=== PATIENT | female | born 1985 | race Hispanic/Latino ===

== ENCOUNTER 2016-06-26 07:23 | Emergency (ER) | payer OTHER ==
[~2016-06-26] VITALS: Ht 157.5 cm; Wt 63.6 kg
[~2016-06-26 07:23] MED LIST: DOCU-41 PO; HYDR-4003 PO; SULF1TAB35 PO
[2016-06-26 07:26] VITALS: BP 117/77; PULSE 87; RESP 12; O2SAT 98
[2016-06-26] MEDS ORDERED: 0.9% Sodium Chloride 1,000 ML IV ONE (07:34)
--- NOTE | 2016-06-26 07:37 | ED.REPORT ---
HPI-Abd Pain F Under 40 Date of Service Jun 26, 2016 ED Provider: Nir Wakefield MD The patient is a 30 year old female who presents to the emergency department complaining of "sharp" RLQ abdominal pain that began suddenly prior to arrival while having intercourse. The pain has been constant since onset. Her pain is exacerbated with movement and walking. She is currently 16 weeks . She has not had similar symptoms in the past. She denies fever, chills , nausea, vomiting, diarrhea, vaginal bleeding, abnormal vaginal discharge, dysuria or hematuria. She has had a sore throat for the last week. Her LNMP was March 02. Nursing Notes Stated Complaint: ABDOMINAL PAIN/4MTHS Chief Complaint: Female Abdominal Pain Nursing Notes Reviewed: Yes Allergies: Coded Allergies: No Known Allergies (Unverified , 03/06/16) Scheduled Sulfamethoxazole/Trimeth 800-160 mg (Bactrim DS 800-160 mg) 1 Each Tablet 1 TABLET PO BID Scheduled PRN Docusate Sodium (Colace) 100 Mg Capsule 100 MG PO DAILY PRN PRN For Constipation Hydrocodone-Acetaminophen 5-325 mg (Hydrocodone-Acetaminophen 5-325 mg) 1 Each Tablet 1 TABLET PO Q4H PRN PRN For Pain General Time Seen by MD: 07:33 Chief Complaint Abdominal pain Hx Obtained From: Patient Arrived By: Walk-in Sudden in Onset?: Yes Onset Occurred: 1 - 4 hours ago Context of Onset: [place] Symptom Duration: Since onset Progression since Onset: Constant Location: : RLQ Quality: Painful Severity: Current: Moderate Severity: Maximum: Moderate Status: Last NL menst cycle (March 02) Sexual History / Control: Reports History of STD (Chlamydia), Reports Pt is sexually active : 1 Recent Healthcare: No recent doctor visit, No recent hospitalization Similar Sx Previous: No Past Medical History Past Medical History History of Chlamydia Family History Noncontributory Smoking History Unknown if Ever Smoker Social History Other Social History: Good social support, Local resident Ambulatory Status Independent Review of Systems Constitutional: Denies: Chills, Fever GI: Reports: Abdominal pain, Denies: Diarrhea, Nausea, Vomiting Female: Reports: , Denies: Dysuria, Hematuria, Vaginal bleeding - abnl, Vaginal discharge Complete sys rev & neg: except as marked. Ears / Nose / Throat: Reports: Sore throat Physical Exam Initial Vital Signs Vital Signs (First) Date Time Temp Pulse Resp B/P Pulse Ox O2 Delivery O2 Flow Rate FiO2 06/26/16 07:26 36.3 87 12 117/77 98 Room Air Initial VS: Reviewed Head / Eyes: Atraumatic, Normocephalic, PERRL ENT: Mucous membranes moist, Conjunctiva normal, No scleral icterus Neck: Supple, Non-tender, Full range of motion Lymphatic: No lymphadenopathy Extremities: Vascular intact, Neuro intact, No swelling, No tenderness Skin: Warm, Dry, No cyanosis Neurologic: Alert, Oriented, Nonfocal Psychiatric: Mood/affect normal, Behavior normal, Normal thought content General/Constitutional: Awake, Alert, No acute distress, Well appearing Respiratory / Chest: Atraumatic, Breath sounds NL, Breath sounds = bilat, No respiratory distress, No rales, No rhonchi, No wheezing Cardiovascular: Heart rate NL, Regular rhythm, Heart sounds NL, Peripheral circulation NL Abdomen: Soft, No guarding, No rebound, BS normoactive, No distention, No hernia, No palpable mass, No pulsatile mass Tenderness/Guarding/Rebound: Positive: Tender RLQ..., Tender suprapubic No rigidity. Gavid uterus c/w 4 month . Back: Inspection NL, Full range of motion, Painless range of motion, No midline vertebral tend Interpretation & Diagnostics Interpretation & Diagnostics: Urine dip negative Abdominal US negative Lab Results Interpretation Result Diagram: 06/26/16 0805 06/26/16 0805 Test 06/26/16 08:00 06/26/16 08:05 Hold Urine Received (Received) White Blood Count 6.2th/mm3 (3.8-10.1) Red Blood Count 3.51mil/mm3 (3.90-5.20) Hemoglobin 11.4g/dL (12.0-15.6) Hematocrit 32.1% (35.0-46.0) Mean Corpuscular Volume 91.5fL (81-100) Mean Corpuscular Hemoglobin 32.5pg (27.0-35.0) Mean Corpuscular Hemoglobin Concent 35.5% (32.0-37.0) Red Cell Distribution Width 12.0% (12.3-15.4) Platelet Count 211bil/L (150-400) Neutrophils (%) (Auto) 64.2% (40-74) Lymphocytes (%) (Auto) 24.5% (14-46) Monocytes (%) (Auto) 7.6% (4-12) Eosinophils (%) (Auto) 2.6% (0-5) Basophils (%) (Auto) 0.5% (0-3) Sodium Level 137mEq/L (134-144) Potassium Level 3.7mEq/L (3.5-5.2) Chloride Level 104mEq/L (97-108) Carbon Dioxide Level 20mmol/L (18-29) Blood Urea Nitrogen 10mg/dL (6-20) Creatinine 0.34mg/dL (0.57-1.00) Estimat Glomerular Filtration Rate 324mL/min (>59) Glucose Level 92mg/dL (60-99) Calcium Level 8.3mg/dL (8.5-10.1) Total Bilirubin 0.3mg/dL (0.0-1.2) Aspartate Amino Transf (AST/SGOT) 21U/L (0-50) Alanine Aminotransferase (ALT/SGPT) 23U/L (0-32) Alkaline Phosphatase 43U/L (25-150) Total Protein 6.6g/dL (6.4-8.4) Albumin 3.5g/dL (3.4-5.0) Lipase 26U/L (13-60) Re-Eval/Medical Decision Med Decision/Clinical Course In summary, the patient is a 30-year-old female currently approximately 4 months by LMP, 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 On examination the patient is afebrile with stable vital signs and in no apparent distress. She is having no vaginal bleeding. Laboratory studies including CBC and CMP are unremarkable. There is no evidence of placental abruption, ovarian torsion or distress. On transvaginal ultrasound appendix cannot be visualized however her overall presentation is unconvincing for appendicitis both in the nature of her pain, absence of fever, absence of leukocytosis and occurrence of pain in the setting of sexual intercourse. My suspicion for appendicitis based upon the overall presentation is very low. The nature of her symptoms are not urinary in nature and her urinalysis is normal without evidence of blood or infection. Her pain was treated with [place] and she reported symptomatic improvement. At this time, I feel that she is appropriate for discharge home. She will follow-up with OB/ RETORT LOADER in the coming week. She has been advised to return immediately for recurrent/worsening pain, vaginal bleeding or any other new/concerning symptoms. The patient verbalized understanding and agreement with the plan and she was discharged in good condition. Source of Hx: Old records Re-Evaluation/Progress : Time of Eval: 08:59 Re-Evaluation/Progress Note: Rechecked the patient. Discussed results, diagnosis, and plan for discharge. All questions were addressed. Counseled Regarding: Diagnosis, Lab results, Need for follow-up, When/why to return to ED Discharge & Departure Primary Impression: Weeks of gestation: 16 weeks Qualified Code: Z3A.16 - 16 weeks gestation of Additional Impressions: Abdominal pain Abdominal location: lower abdomen Qualified Code: R10.30 - Lower abdominal pain, unspecified Painful sexual intercourse Disposition: Home Discharge Condition All VS Reviewed: Yes Condition: Stable Patient Instructions: Acute Abdominal Pain (ED) Additional Instructions: Thank you for seeking care at the emergency room. Our primary goal today in the ED was to evaluate you for any life-threatening conditions. Your evaluation was reassuring. You should follow-up with your OBGYN in the next week for re-evaluation. You should return to the ED immediately if you develop increased pain, fevers, vomiting, vaginal bleeding, abnormal vaginal discharge, lightheadedness, weakness or any other concerning signs or symptoms. Thank you for letting us partake in your care today. Referrals: Ana Luisa Andino MD (PCP) Wilianibalma Attestation Portions of this note were transcribed by Aria Gómez. I, Dr. Wakefield personally performed the history, physical exam and medical decision-making; I reviewed and confirmed the accuracy of the information in the transcribed note. Signed by: Huong Sheth, 06/26/2016 and 0915. copies to: Ana Luisa Andnio MD,Nir Finch MD Jun 26, 2016 07:37 Aria Gómez Jun 26, 2016 07:40
[2016-06-26] MEDS ORDERED: HYDROcodone-APAP 5-325 mg Tablet PO ONE (07:50)
[2016-06-26 08:21] LABS: BASOPHILS % (AUTO) 0.5 % (0-3); EOSINOPHILS % (AUTO) 2.6 % (0-5); MONOCYTES % (AUTO) 7.6 % (4-12); Mean Corpuscular Hemoglobin 32.5 pg (27.0-35.0); Mean Corpuscular Volume 91.5 fL (81-100); NEUTROPHILS % (AUTO) 64.2 % (40-74); Platelet Count 211 bil/L (150-400)
--- NOTE | 2016-06-26 08:48 | DRSVH ---
PROCEDURE: US APPENDIX INDICATIONS: rlq pain, TECHNIQUE: Real-time focused scanning was performed of the abdomen with attention to the appendix, with image do cumentation. COMPARISON: None. FINDINGS: The appendix is not seen. A single living intrauterine gestation is present, with a heart rate of 149 beats per minute. Placenta is within normal limits. Right ovary is within normal limits. IMPRESSION: 1. Single living intrauterine gestation. 2. Normal right ovary. 3. Appendix not seen. Dictated by: Noemy Farias M.D. on 06/26/2016 at 8:46 Approved by: Noemy Farias M.D. on 06/26/2016 at 8:46
[2016-06-26 08:58] VITALS: BP 111/77; PULSE 76; RESP 14; O2SAT 96
[2016-06-26 09:09] VITALS: BP 111/77; PULSE 76; RESP 14; O2SAT 96
== END 2016-06-26 09:10 | disposition home or self-care (01) ==
LOC: SED 07:23
DX: O26.892 Other specified pregnancy related conditions, second trimester (principal); R10.31 Right lower quadrant pain; N94.10 Unspecified dyspareunia; Z3A.16 16 weeks gestation of pregnancy

== ENCOUNTER 2016-06-28 00:42 | Emergency (ER) | payer OTHER ==
[~2016-06-28] VITALS: Ht 157.5 cm; Wt 65.9 kg
[2016-06-28 01:06] VITALS: BP 127/77; RESP 18; O2SAT 99
--- NOTE | 2016-06-28 02:05 | ED.REPORT ---
HPI-General Illness Date of Service Jun 28, 2016 ED Provider: Edward Finn MD Patient is a 30 year old female who is currently 16 weeks presents to the ED complaining of a sore throat for the past week. The patient states that she is unable to eat or drink due to the pain of swallowing. She reports pain even when swallowing her own saliva, with radiation of her pain up to her ears. Patient reports associated productive cough, sometimes blood streaked. She denies a fever or chills. The patient's significant other is also currently ill with the same symptoms. Nursing Notes Stated Complaint: SORE THROAT/POSSIBLE INFECTION/ PT IS 16 WKS PREG Chief Complaint: ENT & Mouth Nursing Notes Reviewed: Yes Allergies: Coded Allergies: No Known Allergies (Unverified , 06/28/16) Scheduled Amoxicillin (Amoxicillin) 500 Mg Tablet 500 MG PO TID Sulfamethoxazole/Trimeth 800-160 mg (Bactrim DS 800-160 mg) 1 Each Tablet 1 TABLET PO BID Scheduled PRN Docusate Sodium (Colace) 100 Mg Capsule 100 MG PO DAILY PRN PRN For Constipation Hydrocodone-Acetaminophen 5-325 mg (Hydrocodone-Acetaminophen 5-325 mg) 1 Each Tablet 1 TABLET PO Q4H PRN PRN For Pain General Time Seen by MD: 02:03 Chief Complaint Sore throat Hx Obtained From: Patient Arrived By: Walk-in Sudden in Onset?: No Onset Occurred: 1 week ago Symptom Duration: Since onset Quality: Painful Severity: Current: Moderate Severity: Maximum: Moderate Recent Healthcare: No recent hospitalization, Recent doctor visit Past Medical History Past Medical History History of Chlamydia Past Surgical History none reported Family History Noncontributory Smoking History Unknown if Ever Smoker Social History Other Social History: Good social support, Local resident Ambulatory Status Independent Review of Systems + decreased PO intake Full Review of Systems Constitutional: Denies: Chills, Fever Ears / Nose / Throat: Reports: Earache bilateral, Sore throat, Throat pain Respiratory: Reports: Non-productive cough, Prod cough, bloody Complete sys rev & neg: except as marked. Physical Exam Vital Signs Vital Signs Date Time Temp Pulse Resp B/P Pulse Ox O2 Delivery O2 Flow Rate FiO2 06/28/16 03:20 36.7 94 18 127/77 99 Room Air 06/28/16 01:06 36.7 94 18 127/77 99 Room Air Initial VS: Reviewed Extremities: Vascular intact, Neuro intact Skin: Warm, Dry, No cyanosis Neurologic: Alert, Oriented, Nonfocal Psychiatric: Mood/affect normal, Behavior normal, Normal thought content General/Constitutional: Awake, Alert, No acute distress Head / Eyes: Normocephalic, PERRL ENT: Airway patent, Pharynx NL (throat is mobile, no edema), No facial swelling Pharynx / Tonsils / Uvula: Negative: Pharyngeal erythema, Tonsillar exudate L, Tonsillar exudate R, Tonsillar swelling L, Tonsillar swelling R significant other has purulent white patches on throat Neck: Supple, No adenopathy Respiratory / Chest: Breath sounds NL, No respiratory distress, No stridor Cardiovascular: Heart rate NL, Regular rhythm Interpretation & Diagnostics Interpretation & Diagnostics: NEGATIVE FOR INFLUENZA TYPE A AND B Lab Results Interpretation Test 06/28/16 02:07 Hold Urine Received (Received) Re-Eval/Medical Decision Med Decision/Clinical Course 30-year-old is currently sixteen weeks , presents with several days of sore throat and ear congestion cough, and a significant other with a patchy red throat presumably strep. She is begun with amoxicillin, see list Decadron, as she is having difficulty swallowing at all. Discharged now in stable condition. No evidence of pharyngeal immobility or abscess. No asymmetry. Swallowing her own secretions while here. Advised to return for any worsening symptoms despite treatment. Source of Hx: Old records Time of Eval: 02:21 Patient Status: Condition improved Re-Evaluation/Progress Note: Patient will be treated for pharyngitis. Patient understands and agrees with the plan to be discharged home. Discharge instructions and follow-up discussed. All questions were addressed. Return to the ED warnings given. Counseled Regarding: Diagnosis, Need for follow-up, When/why to return to ED Discharge & Departure Primary Impression: Pharyngitis Pharyngitis/tonsillitis etiology: unspecified etiology Qualified Code: J02.9 - Acute pharyngitis, unspecified Additional Impression: Weeks of gestation: 16 weeks Qualified Code: Z3A.16 - 16 weeks gestation of Disposition: Home Discharge Condition All VS Reviewed: Yes Condition: Stable Patient Instructions: Pharyngitis (ED) Additional Instructions: Amoxicillin three times daily for ten days. Follow-up with your doctor in the office. Return if you have worsening difficulty with swallowing, any difficulty with speaking or breathing, or any new symptoms of concern. Referrals: Ana Luisa Andino MD (PCP) Wilianibe Attestation Portions of this note were transcribed by Rosi Vallejo. I, Dr. Finn personally performed the history, physical exam and medical decision-making; I reviewed and confirmed the accuracy of the information in the transcribed note. Signed by: Huong Ervin, 06/28/2016 0221 copies to: Ana Luisa Andino MD, Christopher W MD Jun 28, 2016 02:05 Rosi Vallejo Jun 28, 2016 02:12
[2016-06-28] MEDS ORDERED: Dexamethasone 20 mg/2 mL Oral Solution PO ONE (02:15)
[2016-06-28] MEDS ORDERED: AMOX500T2 PO (02:17)
[2016-06-28 03:20] VITALS: BP 127/77; PULSE 94; RESP 18; O2SAT 99
== END 2016-06-28 03:20 | disposition home or self-care (01) ==
LOC: SED 00:42
DX: O99.89 Other specified diseases and conditions complicating pregnancy, childbirth and the puerperium (principal); J02.9 Acute pharyngitis, unspecified; Z3A.16 16 weeks gestation of pregnancy

== ENCOUNTER 2016-10-21 21:13 | Emergency (ER) | payer OTHER ==
[~2016-10-21] VITALS: Ht 157.5 cm; Wt 57.0 kg
[~2016-10-21 21:13] MED LIST changes: +AMOX500T2 PO
[2016-10-21 21:33] VITALS: BP 141/91; PULSE 121; RESP 18; O2SAT 97
[2016-10-21 22:31] LABS: BASOPHILS % (AUTO) 0.1 % (0-3); EOSINOPHILS % (AUTO) 0.4 % (0-5); MONOCYTES % (AUTO) 6.1 % (4-12); Mean Corpuscular Hemoglobin 32.1 pg (27.0-35.0); NEUTROPHILS % (AUTO) 82.6 % (40-74); Platelet Count 239 bil/L (150-400)
[2016-10-21 23:17] VITALS: BP 131/67; PULSE 116; RESP 20; O2SAT 95
--- NOTE | 2016-10-21 23:18 | ED.REPORT ---
HPI-Fever Date of Service October 21, 2016 ED Provider: Romeo Holliday MD 31 y/o 8 months female with a hx of anemia presents to the ED complaining of cough with white sputum, onset 2 weeks ago. Associated sx include chills, myalgia, back pain (worse on the right) and some brown vaginal discharge. The pt states cough syrup improved her cough but did not resolve it completely. She denies nausea, vomiting and being in contact with someone who has been sick. The pt also denies fever but was noted to have low grade fever in the ED. The pt had a UTI approximately 4 months ago. The pt continues to take the cough syrup and has also been taking her anemia medication. An beating machine operator was used. Nursing Notes Stated Complaint: BODY PAIN,SHAKING,CHILLS Chief Complaint: General Complaint Nursing Notes Reviewed: Yes ([facility], [employer] not reconciled) Allergies: Coded Allergies: No Known Allergies (Unverified , 06/28/16) Scheduled Amoxicillin (Amoxicillin) 500 Mg Tablet 500 MG PO TID Sulfamethoxazole/Trimeth 800-160 mg (Bactrim DS 800-160 mg) 1 Each Tablet 1 TABLET PO BID Scheduled PRN Docusate Sodium (Colace) 100 Mg Capsule 100 MG PO DAILY PRN PRN For Constipation Hydrocodone-Acetaminophen 5-325 mg (Hydrocodone-Acetaminophen 5-325 mg) 1 Each Tablet 1 TABLET PO Q4H PRN PRN For Pain General Time Seen by MD: 22:55 Chief Complaint Cough, productive (White sputum) Hx Obtained From: Patient, Training Professional Arrived By: Walk-in Onset Occurred: More than a week ago... (2 weeks) Symptom Duration: Since onset Location: : Back lower (right side) Quality: Painful Radiation: Does not radiate Severity: Current: Mild Severity: Maximum: Mild Context: Immunization Status General: All up to date Recent Healthcare: Recent doctor visit Similar Sx Previous: No Past Medical History Past Medical History History of Chlamydia - Currently (as of 09/2016) Past Surgical History Reports: Cholecystectomy Family History Noncontributory Smoking History Unknown if Ever Smoker Social History Other Social History: Good social support, Local resident Ambulatory Status Independent Review of Systems Constitutional: Reports: Chills, Fever (recorded in the ED) Respiratory: Reports: Prod cough, white GI: Denies: Nausea, Vomiting Female: Reports: Vaginal discharge (Brown color) Complete sys rev & neg: except as marked. Musculoskeletal: Reports: Back pain (worse on right), Myalgia Physical Exam Initial Vital Signs Vital Signs (First) Date Time Temp Pulse Resp B/P Pulse Ox O2 Delivery O2 Flow Rate FiO2 10/21/16 21:33 37.8 121 18 141/91 97 Room Air Initial VS: Reviewed, Vital signs abnormal (fever, tachycardia (appropriate) ) Head / Eyes: Atraumatic, Normocephalic Abdomen / GI: Soft, Non-tender Extremities: Vascular intact, Neuro intact, No swelling, No tenderness General/Constitutional: Awake, Alert, Cooperative Fatigued Neck: Atraumatic, Supple, Full range of motion Respiratory / Chest: Atraumatic, Breath sounds = bilat, No rales, No wheezing Scattered rhonchi. Coughing Cardiovascular: Heart rate NL, Regular rhythm, Heart sounds NL, No gallop, No murmurs, No rubs Skin: Atraumatic, Color NL, No rash, Warm, Dry, Intact Neurologic: Oriented X3, Speech NL, No motor deficits, No sensory deficits Back: Atraumatic, Full range of motion Trace left CVA tenderness. Interpretation & Diagnostics Lab Results Interpretation Result Diagram: 10/21/16222410/21/16 222 Test 10/21/16 22:25 10/21/16 23:50 White Blood Count 8.2th/mm3 (3.8-10.1) Red Blood Count 3.40mil/mm3 (3.90-5.20) Hemoglobin 10.9g/dL (12.0-15.6) Hematocrit 30.6% (35.0-46.0) Mean Corpuscular Volume 90.0fL (81-100) Mean Corpuscular Hemoglobin 32.1pg (27.0-35.0) Mean Corpuscular Hemoglobin Concent 35.6% (32.0-37.0) Red Cell Distribution Width 12.3% (12.3-15.4) Platelet Count 239bil/L (150-400) Neutrophils (%) (Auto) 82.6% (40-74) Lymphocytes (%) (Auto) 10.1% (14-46) Monocytes (%) (Auto) 6.1% (4-12) Eosinophils (%) (Auto) 0.4% (0-5) Basophils (%) (Auto) 0.1% (0-3) Sodium Level 136mEq/L (134-144) Potassium Level 3.9mEq/L (3.5-5.2) Chloride Level 101mEq/L (97-108) Carbon Dioxide Level 19mmol/L (18-29) Blood Urea Nitrogen 13mg/dL (6-20) Creatinine 0.45mg/dL (0.57-1.00) Estimat Glomerular Filtration Rate 233mL/min (>59) Glucose Level 94mg/dL (60-99) Calcium Level 8.6mg/dL (8.5-10.1) Total Bilirubin 0.4mg/dL (0.0-1.2) Aspartate Amino Transf (AST/SGOT) 16U/L (0-50) Alanine Aminotransferase (ALT/SGPT) 14U/L (0-32) Alkaline Phosphatase 91U/L (25-150) Total Protein 7.0g/dL (6.4-8.4) Albumin 3.4g/dL (3.4-5.0) Hold Patel Top Tube Received (Received) Urine Color Yellow (YELLOW) Urine Appearance Slightly cloudy Urine pH 7.5 (5.0-8.0) Urine Specific [place] 1.015 (1.003-1.035) Urine Protein Tracemg/dL (NEG,TRACE) Urine Glucose (UA) Negativemg/dL (NEGATIVE) Urine Ketones Negativemg/dL (NEGATIVE) Urine Occult Blood Negative (NEGATIVE) Urine Nitrite Negative (NEGATIVE) Urine Bilirubin Negative (NEGATIVE) Urine Urobilinogen 1.0mg/dL (NORMAL) Urine Leukocyte Esterase Trace (NEGATIVE) Urine RBC 0-2/hpf (0-2) Urine WBC 11-50/hpf (0-5) Urine Epithelial Cells Many/hpf (NONE-MOD) Urine Crystals None seen (NONE SEEN) Urine Bacteria Moderate/hpf (NONE-FEW) Urine Hyaline Casts None/lpf (NONE) Urine Granular Casts None seen (NONE SEEN) Urine Waxy Casts None seen (NONE SEEN) Urine Red Blood Cell Casts None seen (NONE SEEN) Urine White Blood Cell Casts None seen (NONE SEEN) Urine Mucus Present (None Seen) Urine Trichomonas None seen (NONE SEEN) Urine Yeast None (NONE SEEN) Urinalysis Comment None Urine Culture Reflexed Indicated Lab Results Interpretation: CBC normal CMP normal UA positive Re-Eval/Medical Decision Med Decision/Clinical Course This is a 31-year-old female with third trimester whose had a cough for a couple weeks, and urinalysis develop fever, maybe some trace flank pain, possibly even a little bit of dysuria. She has had no nausea or vomiting. She has diffuse body aches. She denies a sense of shortness of breath, thinks her cough is actually improving. On exam she does have a fever, she is not hypoxic. She is fatigued, but nontoxic. Her abdomen is gravid, but soft nontender. heart tones were normal. Blood work was normal. UA is positive for markers of infection. She does have a cough, but is not hypoxic, does not have overt rhonchi. At this point suspect UTI/early pyelonephritis. The patient is not having any nausea or vomiting to require hospitalization. She does not appear toxic. She received an IM dose of Unasyn, is being discharged from a course of Augmentin. Advised continue Tylenol. Careful routine precautions and return precautions were reviewed. Patient is discharged in improved condition. Source of Hx: Old records Re-Evaluation/Progress #1: Time of Eval: 11:15 Re-Evaluation/Progress Note: Discussed lab results, diagnosis and plan to administer antibiotics. Pt understands and agrees with the plan. All questions addressed. Re-Evaluation/Progress #2: Time of Eval: 00:10 Patient Status: Condition improved Re-Evaluation/Progress Note: Rechecked pt. Discussed lab results and diagnosis. Informed the pt of the plan to discharge. Pt understands and agrees with plan. F/U instructions and RTER warning given. All questions addressed. Counseled Regarding: Diagnosis, Lab results, Need for follow-up, When/why to return to ED Discharge & Departure Impression: Primary Impression: Urinary tract infection Urinary tract infection type: acute pyelonephritis Qualified Code: N10 - Acute pyelonephritis Additional Impressions: Cough Weeks of gestation: unspecified Qualified Code: Z33.1 - state, incidental Disposition: Home Discharge Condition All VS Reviewed: Yes Condition: Stable Additional Instructions: 1. Viviane anlisis de nessa fueron normales. 2. Viviane pruebas de orina revelan marcadores de infeccin, que pueden estar causando viviane sntomas. 3. Recibi melida inyeccin del antibitico Unasyn dallasy. ([place] es seguro en el embarazo). 4. [place] el antibitico Augmentin (amoxicilina / cido clavulnico) 875 mg dos veces al da shai 10 kline. ([place] antibitico en particular cubre los pat genos urinarios y respiratorios comunes) 5. [place] lquidos adicionales. 6. Margret Tylenol 1000 mg 3 veces al da segn sea necesario para la fiebre o yelitza. 7. Todava probablemente se sentir mal por las prximas 24 horas para que los antibiticos realmente tomen efecto. Dion debe mejorar claramente despus de 24- 36 horas con la resolucin de la fiebre y la mejora de los sntomas. Si usted est empeorando, si no mejora despus de 24-36 horas, necesita ser visto y revisado nuevamente. Vuelva al departamento de emergencia shai el fin de semana del da de fiesta si usted est teniendo cualesquiera dificultades. 8. Shelbie un seguimiento con laboy proveedor de servicios obsttricos la prxima semana 1. Your blood tests were normal. 2. Your urine tests do reveal markers of infection, which may be causing her symptoms. 3. You received an injection of the antibiotic Unasyn today. (This is safe in ). 4. Take the antibiotic Augmentin (amoxicillin/clavulanic acid) 875mg twice a day for 10 days. (This particular antibiotics covers both common urinary and respiratory pathogens) 5. Drink extra fluids. 6. Take Tylenol 1000 mg 3 times a day as needed for fever or aches. 7. You will still likely feel lousy for the next 24 hours for the antibiotics really did take effect. But she should be clearly improving after 24-36 hours with resolution of fever and improvement of symptoms. If you are getting worse , if you are not improving after 24-36 hours, you need to be seen and rechecked. Return to the emergency department over the holiday weekend if you are having any difficulties. 8. Follow up with your OB provider next week Referrals: Ana Luisa Andino MD (PCP) Scribe Attestation Portions of this note were transcribed by Jane Mcgovern. I, , personally performed the history, physical exam and medical decision-making;I reviewed and confirmed the accuracy of the information in the transcribed note. Signed by Huong Jj. 10/21/16 00:15 copies to: Ana Luisa Andino MD, Matthew F MD October 21, 2016 23:18 Jane Mcgovern October 21, 2016 23:30
[2016-10-21] MEDS ORDERED: AMPICILLIN SULBACTAM IM ONE (23:20)
[2016-10-22 00:01] LABS: APPEARANCE,URINE SLIGHTLY CLOUDY (CLEAR,HAZY); COLOR,URINE YELLOW (YELLOW); OCCULT BLOOD,URINE NEGATIVE (NEGATIVE); PH,URINE 7.5 (5.0-8.0)
[2016-10-22 00:32] VITALS: BP 122/55; PULSE 108; RESP 18; O2SAT 95
[2016-10-22] MEDS ORDERED: _Amoxicillin-Clavulanate 875-125 mg Tablet PO SCH (08:30)
== END 2016-10-22 00:34 | disposition home or self-care (01) ==
LOC: SED 21:37
DX: O26.893 Other specified pregnancy related conditions, third trimester (principal); R05 Cough; O23.03 Infections of kidney in pregnancy, third trimester; B96.4 Proteus (mirabilis) (morganii) as the cause of diseases classified elsewhere; M79.1 Myalgia; M54.5 Low back pain; Z3A.35 35 weeks gestation of pregnancy
CPT/HCPCS: 36415; 80053; 81000; 85025; 87086; 87088; 87186; 96372; 99285; J0295

== ENCOUNTER 2016-11-23 13:25 | Inpatient (IN) | payer OTHER ==
[~2016-11-23] VITALS: Ht 157.5 cm; Wt 77.1 kg
[2016-11-23] MEDS ORDERED: Lactated Ringer's 1,000 ML IV PRN (16:03)
[2016-11-23] MEDS ORDERED: Oxytocin 10 Unit/mL Inj IM PRN (16:05)
[2016-11-23] MEDS ORDERED: Carboprost 250 mCg/mL Inj IM PRN (16:05)
[2016-11-23] MEDS ORDERED: fentaNYL-PF 50 mCg/mL 2 mL Inj IVPUSH PRN (16:05)
[2016-11-23] MEDS ORDERED: Sodium Chloride LOK Flush 10 mL Syringe IVFLUSH PRN (16:05)
[2016-11-23] MEDS ORDERED: Methylergonovine 0.2 mg/mL Inj IM PRN (16:05)
[2016-11-23] MEDS ORDERED: Oxytocin 30 Units/500 mL LR 30 UNITS in IV Premix 1 EACH IV PRN ×2 (16:05→16:15)
[2016-11-23] MEDS ORDERED: Hemorrhage Kit, Post Partum XX ONE (16:05)
[2016-11-23] MEDS: Lactated Ringer's 1,000 ML IV SCH (16:11)
[2016-11-23 16:14] LABS: Mean Corpuscular Hemoglobin 32.2 pg (27.0-35.0); Mean Corpuscular Volume 93.3 fL (81-100)
[2016-11-23] MEDS: Misoprostol 25 mCg/0.25 Tablet VAGINAL SCH ×2 (16:47→20:53)
[2016-11-23] MEDS ORDERED: PREN-12 PO (17:59)
[2016-11-23] MEDS ORDERED: CHOL200025 PO (17:59)
[2016-11-23] MEDS ORDERED: LORA5SOL82 PO (17:59)
[2016-11-23] MEDS ORDERED: FERR324T2 PO (18:00)
[2016-11-23] MEDS ORDERED: HYDR28.484 RC (19:02)
--- NOTE | 2016-11-23 21:42 | HP ---
[address] [address] HISTORY AND PHYSICAL PATIENT: CARLEY FOSTER : 1985 MR#: [id number] ADMIT: 11/23/2016 JOB ID: [id number] CHIEF COMPLAINT: A 31-year-old G1, P0, at 37+ weeks with hypertension, proteinuria. HISTORY OF PRESENT ILLNESS: The patient is at 37-6/7 weeks based on LMP, consistent with 13 week ultrasound. She is noted to have elevated blood pressures during NST being done at the [facility]. Several blood pressures over 4 hours with diastolic greater than 90. She had been being monitored for development of preeclampsia due to lower extremity edema, onset about two weeks ago. Otherwise has been feeling well, without headache, visual changes, abdominal pain, or difficulty breathing. She has not had any vaginal bleeding. The movements have been normal. No rupture of membranes. No contractions. ALLERGIES: No known drug allergies. MEDICATIONS: 1. Ferrous gluconate one tablet daily. 2. vitamin 1 daily. 3. Loratadine 10 mg daily. 4. Hydrocortisone cream b.i.d. for itching. 5. Vitamin D3 2000 international units daily. CURRENT MEDICAL HISTORY: Dates as noted above. complicated by Rh negative status. She received RhoGAM at 31 weeks after a negative antibody screen. Chlamydia in the 1st trimester, treated with a negative test of cure and also a recheck negative at 36 weeks. E. coli UTI at 17 weeks with negative test of cure. Additionally labs significant for A negative blood type. RPR nonreactive. Rubella not immune. Hepatitis B surface antigen negative, HIV negative, gonorrhea negative. Quad screen normal. A 1-hour Glucola normal. GBS was negative. Pap smear within normal limits. PAST MEDICAL AND SURGICAL HISTORY: Significant for atopic dermatitis and gallbladder surgery in approximately 2007. 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 Supportive partner. No alcohol or drug use or tobacco use. No intimate partner violence noted in chart. PHYSICAL EXAMINATION: Blood pressures in the 140s over 90s and 130s over 90s repeatedly during evaluation at the [facility], including an initial blood pressure of 130/92. These are a significant change from evaluation just few days previously when she was in the 120s over 70s at the [facility]. O2 sats normal. She is afebrile. Pulse is normal. She is in no acute distress. Pleasant, cooperative. Cardiovascular: Regular rate and rhythm. S1, S2. No murmurs, gallops, or rubs. Lungs: Clear to auscultation bilaterally. No crackles, rhonchi, or wheezes. Abdomen is soft, nontender, gravid. Estimated weight 7 pounds. Lower extremities show 2+ edema on the feet, 1+ edema above the ankles. NST is reactive, with heart rate in the 120s to 130s. Good reactivity. The cervix is long, thick, and closed. It is firm, mid position. Ferreira score of approximately 1. LABORATORY: Labs done during triage evaluation showed her CBC to be within normal limits except for hematocrit 30.2. Urine protein/creatinine ratio 0.16. BUN 11, creatinine 0.51. Uric acid 4.1. AST 18 and ALT 13. However, the patient already had an elevated total 24 hour urine protein from November 19, 2016 as an outpatient, with a total 24 hour urine protein of 306 mg. Vertex confirmed today on bedside ultrasound. ASSESSMENT AND PLAN: 1. A 31-year-old G1, P0 at 37-6/7 weeks by susan morataya. Presents with elevated blood pressures in the context of edema and mild proteinuria. Case discussed with OB, who recommends induction, which will be done, starting with cervical ripening. It is possible, though not llikely, that if the patient does not make progress and blood pressures normalize, we may reconsider plan in 24-36 hours, but the patient needs to be hospitalized at this time and we expect to move toward delivery. 2. Rh-negative status. Check cord blood after delivery. Will need RhoGAM if Rh positive infant. 3. Rubella nonimmune. Will need vaccine after delivery. OB consultation on this patient is greatly appreciated. DAVID
[2016-11-24] MEDS ORDERED: hydrOXYzine Pamoate 25 mg Capsule PO PRN (00:05)
[2016-11-24] MEDS: Lactated Ringer's 1,000 ML IV SCH ×4 (00:11→19:32)
[2016-11-24] MEDS: Misoprostol 25 mCg/0.25 Tablet VAGINAL SCH ×2 (01:02→05:29)
[2016-11-24 16:09] LABS: Mean Corpuscular Hemoglobin 32.8 pg (27.0-35.0); Mean Corpuscular Volume 94.8 fL (81-100)
[2016-11-24] MEDS ORDERED: Promethazine 25 mg/mL Inj IM PRN (18:40)
--- NOTE | 2016-11-24 22:03 | CONS ---
[address] [address] PROGRESS NOTE PATIENT: CARLEY FOSTER : 1985 MR#: [id number] ADMIT: 11/23/2016 JOB ID: [id number] DATE OF SERVICE: 11/24/2016 SUBJECTIVE: She had received Cytotec overnight, though began having enough contractions that Cytotec was held during much of the day today. The contractions are mild, she has been able to walk and ambulate during them.. She has otherwise been feeling well, no headaches, no visual disturbances, no abdominal pain (other than contraction), and no difficulty breathing. She did have a small episode of anxiety last night which resolved within about 10-15 minutes, not associated with any vital sign changes. OBJECTIVE: During the day today, she has had stable vital signs, has been afebrile. She has had a couple of blood pressures diastolically just over 90 and a single systolic over 140. One of those was associated with a blood draw, the other ones were not. Other blood pressures all normal. She is in no acute distress. Pleasant, cooperative, appeared resting comfortably and speaking through her contractions. Her lower extremities continued to have 2+ edema on the feet of 1+ on the legs. Noted no edema elsewhere. Her abdomen is nontender. Cervical exam done at approximate 6 p.m. shows her cervix to still be closed with fingertip only at the external os, and cervical length approximately 2-1/2 cm, minimal effacement. -3 station. Medium consistency, which has improved from previous mid to medium position. strip has been good, category one throughout the day. LABS: Afternoon labs show normal white count, normal platelets, hematocrit stable at 32.7. BUN 11, creatinine 0.53, uric acid 3.5, AST 19, ALT 13. Urine protein to creatinine ratio was ordered, though appears to have been canceled by the lab. ASSESSMENT AND PLAN: A 31-year-old, 1, para 0, now at 38 weeks, with hypertension and proteinuria measured on one check approximately five days ago, meeting criteria for preeclampsia, undergoing cervical ripening in preparation for induction. She has been tolerating this well, though with very minimal cervical change. We will see if contractions are spaced out enough to allow us to use Cervidil overnight, to try to help the patient's cervix ripen further. If the patient does not go into more active labor, we will try to rest her overnight and then re-evaluate in the morning. Dr. Corona will be covering overnight. Dr. Marinelli in the morning. DAVID
[2016-11-25] MEDS: Lactated Ringer's 1,000 ML IV SCH ×3 (06:26→20:47)
[2016-11-25] MEDS ORDERED: Oxytocin 30 Units/500 mL LR 30 UNITS in IV Premix 1 EACH IV PRN (12:50)
--- NOTE | 2016-11-25 14:14 | CONS ---
[address] [address] CONSULTATION REPORT PATIENT: CARLEY FOSTER : 1985 MR#: [id number] ADMIT: 11/23/2016 JOB ID: [id number] DATE OF SERVICE: 11/25/2016 OBSTETRICAL CONSULTATION: CHIEF COMPLAINT: Induction of labor for preeclampsia. HISTORY OF PRESENTING ILLNESS: This is a 31-year-old 1, para 0, at 38 weeks and two days with expected date of delivery of December 07, 2016 dated by last menstrual period and consistent with 13 week ultrasound. She was admitted on November 23, 2016, two days ago, for induction for preeclampsia. She was noted to have elevated blood pressures. Maximum systolic blood pressure is 150 and maximal for diastolic blood pressure is 99. Blood pressure mostly running at 135/85. Denies headache, change in vision, abdominal pain or nausea and vomiting. Proteinuria as per 24 hour urine protein of 306 and a protein creatinine ratio of 0.32. Otherwise normal preeclampsia labs with platelets 221. AST 19, ALT 13, creatinine 0.53. Hematocrit 32.7. Induction started with misoprostol for the first 24 hours and then 12 hours of Cervidil. Cervix on admission was closed, 50%. On reassessment after the Cervidil, cervix is fingertip, 60%, and -2. complicated with preeclampsia, rubella non immune, Rh negative. GYNECOLOGIC HISTORY: History of Chlamydia April 2016. Test for cure negative March 2016. Anemia in . PAST OBSTETRIC HISTORY: Negative. This is her first . PAST GYNECOLOGIC HISTORY: Chlamydia positive during this . Menarche at age 12. Menses is every 28 days. No history of abnormal Pap smear. PAST MEDICAL HISTORY: Dermatitis atopic. PAST SURGICAL HISTORY: Gallbladder removal nine years ago. SOCIAL HISTORY: Denies alcohol, smoking or illicit drug abuse. FAMILY HISTORY: Diabetes father. Twins: Maternal side has twins and also on the paternal side. PHYSICAL EXAMINATION: Blood pressure as per history of presenting illness. Current vitals: Blood pressure 115/76, heart rate 71, respiratory rate 18, temperature 36.5. heart tones baseline 150, moderate variability, positive accelerations. No decelerations. Contractions irregular. General: Alert, oriented to time, place and person. Neck: Supple. Chest: Equal air entry bilaterally. No added sounds. Cardiovascular: Regular rate and rhythm. Abdomen: Gravid. Estimated weight 7 pounds. Cervical examination: Cervix is finger tip, 60%, 02, soft and posterior. After discussion with the patient regarding plan of care, the patient desired to proceed with Mcgowan balloon insertion that was inserted without difficulty. Internal and external balloon both filled with a total of 80 mL of fluid. LABORATORIES: As per history of presenting illness. LABS: Blood type A negative. Antibody screening positive, possibly from RhoGAM dose received in September 2016. HIV nonreactive. Rubella nonimmune. Rest of laboratory work obtained from the admission H and P note. Office results are not available in hard copy at this time. Will obtain a copy from the office. ASSESSMENT: This is 31-year-old 1, para 0, at 38 weeks and two days with preeclampsia without severe feature based on elevated blood pressures in the 140s/90s with maximum blood pressure of 150/98, asymptomatic here for induction of labor. Prostaglandin used for the last two days with minimal change. We were consulted by [facility]. The patient's induction was started by Dr. Guevara. was covering overnight and Dr. Marinelli is taking over this morning. Plan of care was discussed with Dr. Marinelli and with the patient. The patient was offered Mcgowan balloon and Pitocin for cervical ripening. The patient desires to proceed with the plan as offered. Mcgowan balloon was inserted without difficulty. Will start the Pitocin at low dose and increase as per protocol.
--- NOTE | 2016-11-25 21:16 | PCM.PNOBIP ---
Subjective Date of Service Nov 25, 2016 Delivery plan: Spontaneous Vaginal Delivery Visit History Pt is cindy every 1 to 3 min, feeling more pain; called Dr. Nava of anesthesia; he will place an epidural for pain control once pt is ready. Dr. Zamudio and Dr. Collins saw pt earlier; balloon dilation was placed ~1 PM , and Pitocin was started around 2 PM; see notes by Dr. Collins for details. Pain Management: Epidural (when ready) Labs reviewed: Rh neg, received Rhogam, GBS neg, treated Chlamydia during 1st trimester with negative repeated testing; Blood Type: A RH Type: Negative Labs Laboratory Tests 11/24/16 16:00: White Blood Count 8.2, Red Blood Count 3.45, Hemoglobin 11.3, Hematocrit 32.7, Mean Corpuscular Volume 94.8, Mean Corpuscular Hemoglobin 32.8, Mean Corpuscular Hemoglobin Concent 34.6, Red Cell Distribution Width 12.6, Platelet Count 221, Hematology Comments Exam Vital Signs Vital Signs Contraction frequency in minutes: MVUs: Vital Signs: VS reviewed, stable Heart Tracings Heart Tones Baseline bpm Heart Rate Category: I Tocometry/IUPC Contraction frequency in minutes: MVUs: Exam Exam vaginal exam will be performed later today. Abdomen: Abdomen soft Extremities: No cords, Normal pulses, Edema 1+ Lungs: Clear to Auscultation Heart: Exam Unremarkable, Regular Rate/Rhythm, Normal S1, Normal S2, No Murmurs /Rubs/Gallops General: Alert, Oriented X3 OB Intrapartum Assessment/Plan Assessment 31 y/o, , term at 38 wk 2 d, admitted for induction of labor secondary to preeclampsia with mild features; on pitocin with slow, steady labor progression. Rh negative, will need Rhogam if Rh positive infant; immunization after delivery for rubella non-immune status; GBS negative, Intrapartum plan: Continue expected management Tatiana Marinelli MD Nov 25, 2016 21:16
[2016-11-26] MEDS: Lactated Ringer's 1,000 ML IV SCH ×9 (00:11→22:36)
[2016-11-26] MEDS ORDERED: fentaNYL 2 mCg/mL-Bupivicaine 0.125% 100 mL Premix EPIDURAL ONE (06:21)
[2016-11-26] MEDS ORDERED: Lactated Ringer's 500 ML IV ONE (06:36)
--- NOTE | 2016-11-26 06:36 | PCM.HPANE ---
Patient Data Date of Service: Nov 26, 2016 (0555) Surgeon Admitting Provider:Godfrey Guevara MD Attending Provider:Godfrey Guevara MD Primary Care Physician:Ana Luisa Andino MD Other Provider:Saeed Roberto Anesthesia Reason for Visit Induction INDUCTION Ht/WT & BMI Height (Feet): 5 Height (Inches): 2 Body Mass Index Allergies Coded Allergies: No Known Allergies (Unverified , 06/28/16) Past Anesthesia History Anesthesia History: Denies:: Anesthesia Reactions Diabetes History Hx Diabetes?: No MRSA MRSA: No Medications Hypertension Medication: No Home Meds Incl Beta Kaylynn: No Reported Medications Hydrocortisone 1 % Cream..g.28.4 Gm RC BID 11/23/16 Ferrous Sulfate 324 Mg Tablet.dr324 Mg PO DAILY 30 Days Ref 0 11/23/16 Loratadine 5 Mg/5 Ml (5 Ml) [id number] Mg PO PRN allergies 11/23/16 Cholecalciferol (Vitamin D3) (Vitamin D3)2,000 Unit Tablet2,000 Unit PO 11/23/16 Vit W-Ca,Fe,FA(<1 mg) ( Formula)1 Each Tablet1 Each PO DAILY 11/23/16 Discontinued Scripts Amoxicillin 500 Mg [id number] Mg PO TID #30 TABLET Ref 0 Prov:Edward Finn MD 06/28/16 Sulfamethoxazole/Trimeth 800-160 mg (Bactrim DS 800-160 mg)1 Each Tablet1 Tablet PO BID 7 Days Ref 0 Prov:Georgina Goddard MD 03/06/16 Docusate Sodium (Colace)100 Mg [id number] Mg PO DAILY PRN For Constipation #20 CAPSULE Ref 0 Prov:Georgina Goddard MD 03/06/16 Hydrocodone-Acetaminophen 5-325 mg 1 Each Tablet1 Tablet PO Q4H PRN For Pain # 10 TABLET Prov:Georgina Goddard MD 03/06/16 History History of ENT Problems?: No HEENT History: Denies:: Abnormal Airway Denture Type: None Teeth Condition: Within Normal Limits Hx of Heart Problems?: Yes Cardiovascular History: Positive for:: Hypertension Denies:: Congestive Heart Failure Hx of Respiratory Problem?: No Respiratory History: Denies:: Tuberculosis Hx Neurologic Problems?: No Hx of GI Problems?: No Hx of Problems?: No Female Hx: Positive for:: Currently Other History/Comment preeclampsia Hx Musculoskeletal Problems?: No Hx of Psycho/Social Problems?: No Hx Surgeries?: No Hx Diabetes: No Hx Alcohol Use: NoHx Substance Use: No Smoking Status: Unknown if Ever Smoker Have You Smoked inLast 12 mo: No Stop/Bang ZENON Risk Assessment: Low Risk, <3 Yes Risk Assessment Category Category 1A: Patient has history of documented sleep apnea, and HAS NOT received any narcotic, sedative or anesthesia administration during this stay. Category 1B: Patient has history of documented sleep apnea, and HAS received any narcotic , sedative or anesthesia administration during this stay Category 2: Patient has SUSPECTED Obstructive Sleep Apnea, and HAS received any narcotic , sedative or anesthesia administration during this stay. Category 3: Patient has SUSPECTED Obstructive Sleep Apnea and HAS NOT received narcotic, sedative or anesthesia administration during this stay. Category 4: Outpatient in Procedural Areas with known sleep apnea or who screen positive for High Risk via the STOP/BANG questionnaire. Exam Exam General Appearance: Alert, Oriented X3 HEENT/AIRWAY: MP 2 Lungs: Clear to Auscultation Heart: Exam Unremarkable Meds/Labs/Diagnostics Admission Meds Current Medications Lactated Ringer's (Lr) 1,000 ml @ 125 mls/hr Q8H IV Last administered on t 05:18; Start 11/25/16 at 12:47 Labs Test 11/24/16 16:00 11/25/16 09:36 White Blood Count 8.2th/mm3 (3.8-10.1) Red Blood Count 3.45mil/mm3 (3.90-5.20) Hemoglobin 11.3g/dL (12.0-15.6) Hematocrit 32.7% (35.0-46.0) Mean Corpuscular Volume 94.8fL (81-100) Mean Corpuscular Hemoglobin 32.8pg (27.0-35.0) Mean Corpuscular Hemoglobin Concent 34.6% (32.0-37.0) Red Cell Distribution Width 12.6% (12.3-15.4) Platelet Count 221bil/L (150-400) Hematology Comments Blood Urea Nitrogen 11mg/dL (6-20) Creatinine 0.53mg/dL (0.57-1.00) Uric Acid 3.5mg/dL (2.6-7.2) Aspartate Amino Transf (AST/SGOT) 19U/L (0-50) Alanine Aminotransferase (ALT/SGPT) 13U/L (0-32) Urine Random Creatinine 109mg/dL (16-392) Urine Random Total Protein 35mg/dL (0-15) Urine Protein/Creatinine Ratio 0.32 (0-200) Plan Impression Patient chart reviewed, patient interviewed and anesthestic plan with risks, benefits, and alternatives discussed, and informed consent obtained. ASA Physical Status: ASA2 Mod Systemic Disease Anesthetic Plan: Epidural Bene/Risks/Altern/Consents: Yes HP Complete Prior to Induction: Yes Jan Nava MD Nov 26, 2016 06:36
[2016-11-26] MEDS ORDERED: EPHEDrine Sulfate 50 mg/mL Inj IVPUSH PRN ×2 (06:40→19:55)
[2016-11-26] MEDS ORDERED: Ondansetron 2 mg/mL 2 mL Inj IVPUSH PRN ×2 (06:40→19:55)
[2016-11-26] MEDS ORDERED: Atropine 1 mg/10 mL (Code) Syringe IVPUSH PRN (06:40)
[2016-11-26] MEDS ORDERED: fentaNYL 2 mCg/mL-Bupiv 0.125% 100 ML EPIDURAL SCH (06:40)
[2016-11-26] MEDS: Sodium Chloride LOK Flush 10 mL Syringe IVFLUSH SCH ×2 (08:30→16:30)
--- NOTE | 2016-11-26 10:28 | PCM.PNOBIP ---
Subjective Date of Service Nov 26, 2016 Delivery plan: Spontaneous Vaginal Delivery Labs Laboratory Tests 11/24/16 16:00: White Blood Count 8.2, Red Blood Count 3.45, Hemoglobin 11.3, Hematocrit 32.7, Mean Corpuscular Volume 94.8, Mean Corpuscular Hemoglobin 32.8, Mean Corpuscular Hemoglobin Concent 34.6, Red Cell Distribution Width 12.6, Platelet Count 221, Hematology Comments Exam Vital Signs Vital Signs Contraction frequency in minutes: MVUs: Vital Signs: VS reviewed, stable Heart Tracings Heart Tones Baseline 140 bpm moderate variability, occasional decel w/ contractions down to 110s, accels present Heart Rate Variability: Moderate Heart Rate Accelleration: Present Heart Rate Deceleration: Present Heart Rate Category: II Tocometry/IUPC Contraction frequency in minutes: MVUs: 0 Sterile Vaginal Exam Cervical Dilation: 3 cms Cervical Effacement: 60 % Station: -2 Exam Extremities: Edema 1+ Heart: Exam Unremarkable General: Alert, Oriented X3 OB Intrapartum Assessment/Plan Intrapartum plan: Continue expected management (Called to eval after 4 doses of cytotec, cervidil, cid balloon and pitocin. SROM occurred overnight. On exam now 3-4/soft/posterior with copious fluid out. IUPC and FSE placed. Pitocin has been off x3 hours. Recommend restarting pitocin per protocol and titrating as necessary. Has made moderate cervical change, continue augmentation with pitocin, anticipate . BP reassuring, status reassuring. ) Cyndee West MD Nov 26, 2016 10:28
[2016-11-26] MEDS ORDERED: Sodium Citrate-Citric Acid 15 mL Solution ONE (18:58)
--- NOTE | 2016-11-26 19:03 | PCM.PNOBIP ---
Subjective Date of Service Nov 26, 2016 Delivery plan: Spontaneous Vaginal Delivery Subjective Patient has been on pitocin all day, pit has been turned off multiple times due to intolerance of labor. She now has episodes of tachycardia as well as prolonged episodes of minimal variability, now improved with 02 and repositioning, but pitocin is currently off. Cervix is 4.5cm and blood pressures have been between 140's-170's/60-80's and she continues to be remote from delivery. Labs Laboratory Tests 11/24/16 16:00: White Blood Count 8.2, Red Blood Count 3.45, Hemoglobin 11.3, Hematocrit 32.7, Mean Corpuscular Volume 94.8, Mean Corpuscular Hemoglobin 32.8, Mean Corpuscular Hemoglobin Concent 34.6, Red Cell Distribution Width 12.6, Platelet Count 221, Hematology Comments Exam Vital Signs Vital Signs Contraction frequency in minutes: MVUs: Vital Signs: VS reviewed, concerns are (Severe range blood pressures up to 170' s systolic, currently 150's/80's) Heart Tracings Heart Tones Baseline 160/minimal to moderate/ no decels bpm Tocometry/IUPC Contraction frequency in minutes: MVUs: <100 Sterile Vaginal Exam Cervical Dilation: 4 cms Cervical Effacement: 60 % Station: -2 Exam Extremities: Edema 1+ Heart: Exam Unremarkable General: Alert, Oriented X3 OB Intrapartum Assessment/Plan Intrapartum plan: Recommend delivery (She continues to be remote from delivery with intermittent non reassuring heart tones, intermittent severe range blood pressures and has been ruptured almost 18 hours. Tmax 37.6 at this point in time I feel it is safest to proceed with primary low transverse section. Risks/benefits and alternatives reviewed. She elects to proceed) Cyndee West MD Nov 26, 2016 19:03
[2016-11-26] MEDS ORDERED: Acetaminophen IV 1,000 MG in IV Premix 1 EACH IV ONE (19:55)
[2016-11-26] MEDS ORDERED: Dexamethasone 4 mg/mL Inj IVPUSH PRN (19:55)
[2016-11-26] MEDS ORDERED: MetoCLOpramide 5 mg/mL 2 mL Inj IVPUSH PRN (19:55)
[2016-11-26] MEDS ORDERED: Atropine 0.4 mg/mL Inj IV PRN (19:55)
[2016-11-26] MEDS ORDERED: Phenylephrine/NS-PF 100 mCg/mL 5 mL Syringe IVPUSH PRN (19:55)
[2016-11-26] MEDS ORDERED: fentaNYL-PF 50 mCg/mL 2 mL Inj IVPUSH PRN (19:55)
[2016-11-26] MEDS ORDERED: Oxytocin 10 Unit/mL Inj IM PRN (20:30)
[2016-11-26] MEDS ORDERED: diphenhydrAMINE 50 mg Capsule PO PRN (20:30)
[2016-11-26] MEDS ORDERED: Carboprost 250 mCg/mL Inj IM PRN (20:30)
[2016-11-26] MEDS ORDERED: Measles-Mumps-Rubella Vaccine 0.5 mL Inj SUBQ ONE (20:30)
[2016-11-26] MEDS ORDERED: oxyCODONE-Acetamin 5-325 mg Tablet PO PRN (20:30)
[2016-11-26] MEDS ORDERED: Oxytocin 30 Units/500 mL LR 30 UNITS in IV Premix 1 EACH IV PRN (20:30)
[2016-11-26] MEDS ORDERED: Sodium Chloride LOK Flush 10 mL Syringe IVFLUSH PRN (20:30)
[2016-11-26] MEDS ORDERED: Hemorrhage Kit, Post Partum XX ONE (20:30)
[2016-11-26] MEDS ORDERED: LANOlin HPA 7 Gm Ointment TOPICAL PRN (20:30)
[2016-11-26] MEDS ORDERED: Gentamicin Per Pharmacist XX ONE (20:50)
--- NOTE | 2016-11-26 21:19 | PCM.ANEP1 ---
Post Anesthesia PACU Phase 1 Assessment Date of Service: Nov 26, 2016 Vital Signs See OB documentation Anesthetic Administered: Epidural Level of Alertness: Awake, talking MURILLO's with Equal Strength: No Pain: No Nausea or Vomiting: No CV Function & Hydration Stable: Yes Airway Device: Oxygen Delivery: Room Air Lungs: Normal Air Movement Dermatome Level: T10 (Umbilicus) PACU Phase 2 Assessment Complications: No Follow up Care: N/A Patient Instructions Provided: N/A Eduardo Núñez MD Nov 26, 2016 21:19
--- NOTE | 2016-11-26 21:42 | PCM.CONPHA ---
Subjective Requesting Provider: Cyndee West MD Reason for Pharmacy Consult: Aminoglycoside Dosing Assessment/Plan Assessment/Plan Gentamicin dosing per Pharmacy: The patient is post , with concurrent clindamycin and ampicillin. Extended interval gentamicin dosing at 5mg/kg X 25Gw=508bc IV daily. A random gentamicin level has been ordered for 1630 11/28/16, prior to the third dose, which should be less than 2. A pharmacist will monitor the level and adjust dosing as necessary. Damaris Diaz [facility] Nov 26, 2016 21:42
[2016-11-26] MEDS ORDERED: Gentamicin Per Pharmacist XX SCH (21:45)
[2016-11-26] MEDS ORDERED: Ampicillin Inj 2,000 MG in 0.9% Sodium Chloride 100 ML IV SCH (22:00)
[2016-11-26] MEDS ORDERED: Clindamycin Inj 900 MG in IV Premix 1 EACH IV SCH (22:00)
[2016-11-26] MEDS: GENTAMICIN IV SCH (22:16)
[2016-11-26] MEDS: DEXTROSE 5% IV SCH (22:16)
[2016-11-27] MEDS ORDERED: Acetaminophen IV 1,000 MG in IV Premix 1 EACH IV ONE
[2016-11-27] MEDS: Sodium Chloride LOK Flush 10 mL Syringe IVFLUSH SCH ×3 (00:30→16:30)
[2016-11-27] MEDS ORDERED: Clindamycin Inj 900 MG in IV Premix 1 EACH IV SCH (00:30)
[2016-11-27] MEDS: Clindamycin Inj 900 MG in IV Premix 1 EACH IV SCH ×3 (03:32→20:30)
--- NOTE | 2016-11-27 04:14 | OP ---
[address] [address] OPERATIVE REPORT PATIENT: CARLEY FOSTER : 1985 MR#: [id number] ADMIT: 11/23/2016 JOB ID: [id number] DATE OF SURGERY: 11/26/2016 PREOPERATIVE DIAGNOSIS(ES): 1. A 38-week intrauterine with preeclampsia here for an induction of labor. 2. Rh-negative status. 3. Positive Chlamydia screen in the with a negative test of cure. 4. Rubella nonimmune. POSTOPERATIVE DIAGNOSIS(ES): 1. A 38-week intrauterine with preeclampsia here for an induction of labor. 2. Rh-negative status. 3. Positive Chlamydia screen in the with a negative test of cure. 4. Rubella nonimmune. PROCEDURE PERFORMED: Primary low transverse section. SURGEON: Cyndee West MD. PHARMACY DELIVERY DRIVER: Tatiana Marinelli MD, who was necessary for safe completion of the case. ANESTHESIA: Epidural. ESTIMATED BLOOD LOSS: 600 cc. FLUID REPLACEMENT: 1600 cc of crystalloid. URINE OUTPUT: 30 cc of concentrated urine. COMPLICATIONS: None apparent. INDICATIONS: This is a 31-year-old G1, P0 female who presented on November 23, for an induction of labor due to preeclampsia without severe features. Her was complicated by Rh negative status. Positive Chlamydia in the that was treated with a negative test of cure. At the time of evaluation in Labor and Delivery she was noted to have a 24-hour urine protein of 360 mg. She had a protein-creatinine ratio 0.16. A creatinine of 0.5 and normal AST and ALT. She was admitted for an induction of labor. The patient received 4 doses of Cytotec as well as Cervidil and then a cervical ripening balloon was placed over the days from the through the . 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 The cervical ripening balloon was then taken out, and she was noted to be still 2 cm dilated. I was consulted on the morning of the for continued management. When I evaluated her in the morning of November 26 at that point in time, she was noted to be 2 cm dilated, 60% effaced and a -2 station. She had a copious amount of amniotic fluid and then prior to my check she was 2 cm, effaced. When I checked her she was noted to be changed to 3-4 cm since her previous check by the nurse. A scalp electrode and an intrauterine pressure catheter were inserted and at that point in time her heart tones were reassuring and her blood pressures were 120s to 140s over 60s to 70s and maternal status was overall very reassuring. At point in time, I recommended Pitocin per protocol as she had made some change and was seeming to be at a point where Pitocin may be effective. Care was taken over again by Dr. Marinelli and she was kept on Pitocin throughout the morning, afternoon, and early evening of the . Throughout this time they had episodes of minimal variability requiring discontinuation of the Pitocin, rising heart tone baseline up to the 160s with periods of minimal variability, and a maternal T-max of 37.6. Her blood pressures were also noted to be rising anywhere between the 140s to 170s. I was then consulted again the evening of the for management. After evaluating her at the bed side her blood pressure were again non-severe in the 150s, however she did have prolonged periods of minimal variability and a rising baseline to 155. At that point in time, she was still four to 4.5 cm dilated and given the entire clinical picture including a four-day induction remote from delivery with occasional severe range blood pressures, rising baseline, rising maternal temperature, and periods of minimal variability I recommended proceeding with a section. Risks, benefits, and alternatives were reviewed with the patient and her family members and they elected to proceed. PROCEDURE: The patient was taken to the operating room. She was placed in a dorsal supine position with a leftward tilt. She was prepped and draped in the usual sterile fashion for section. Under excellent anesthesia a Pfannenstiel incision was made over the lower uterine segment. This was brought down sharply to the level of the rectus fascia. The fascia was then incised in the midline. Blunt and sharp dissection was used to separate the fascia from the underlying rectus muscle. The peritoneum was entered bluntly with the aid of a hemostat and this entrance was extended bluntly bilaterally. A bladder blade was then placed. An incision was made over the lower uterine segment revealing a moderate amount of amniotic fluid. This was then ruptured and the vertex was brought up to the uterine incision and the vertex was then atraumatically delivered. The anterior shoulder delivered easily, followed by the posterior shoulder, and the remainder of the infant was then easily delivered. After a 60 second cord clamping delay, the cord was then clamped and cut and the was passed to the nursing team who were in attendance. The did have spontaneous cry and spontaneous movement of all four extremities. The placenta was then delivered spontaneously and passed off the table. Pitocin was started per protocol prior to the placenta delivery. The uterus was removed from the abdominal cavity covered with a moist lap and cleaned with a sponge. The uterus was then closed in a single locking layer of 0-Vicryl. A second imbricating layer was placed on top of this and good hemostasis was noted. Electrocautery was needed along a small portion of the lower uterine segment to achieve hemostasis. The uterus was then replaced into the abdominal cavity. The pericolic gutters were cleared of clot and debris. Again the uterine incision was noted to be hemostatic. The rectus muscle was inspected and noted to be hemostatic. The fascia was then closed with a running nonlocking stitch of 0-Vicryl. The subcutaneous tissue was then reapproximated using a stitch of 0 plain gut to reapproximate the subcutaneous layer. The skin was then closed with 4-0 Vicryl. The patient did tolerate this procedure well. Recovered in Labor and Delivery with her infant. All sponge, needle, and instrument counts were correct at the completion the procedure. The patient will be monitored closely in PACU. She has had a low urine output and has signs concerning for severe preeclampsia. Should she have any further elevated blood pressures in the greater than 160 systolic or greater than 110 diastolic. I plan to start magnesium and her urine output will be followed closely with strict I's and O's for the time being. Additionally laboratory markers are being redrawn at this time to evaluate again her preeclamptic status. She is also rubella immune and she will be receiving a MMR and Rh negative and her 's blood type will be checked to determine maternal need for RhoGAM.
[2016-11-27] MEDS: Lactated Ringer's 1,000 ML IV SCH ×2 (04:30→12:06)
[2016-11-27] MEDS: Ampicillin Inj 2,000 MG in 0.9% Sodium Chloride 100 ML IV SCH ×2 (04:58→12:07)
[2016-11-27 06:30] LABS: Mean Corpuscular Hemoglobin 32.1 pg (27.0-35.0); Mean Corpuscular Volume 95.4 fL (81-100)
[2016-11-27] MEDS: Acetaminophen IV 1,000 MG in IV Premix 1 EACH IV PRN ×3 (08:23→19:38)
[2016-11-27] MEDS: hydrOXYzine Pamoate 25 mg Capsule PO PRN ×2 (09:34→16:51)
[2016-11-27] MEDS ORDERED: Lactated Ringer's 1,000 ML IV SCH (14:05)
[2016-11-27] MEDS ORDERED: Lactated Ringer's 500 ML IV ONE (14:05)
--- NOTE | 2016-11-27 14:46 | PCM.PNOBPP ---
Subjective Date of Service Nov 27, 2016 Post : Primary [facility] Delivery Visit History POD#1 S/P PCD for non reassuring heart tones remote from delivery. Postoperative endometritis. First fever noted was 38.2 on 11/26/16 at 2041. Antibiotics were started at 22: 00 Amp/Gent/Clindamycin Last fever /Tmax 38.3 n 11/27/16 at 1330 Pain Management: PO pain meds Gastrointestinal: Good Appetite, No N/V Postop Activity: Ambulate without Assist Labs Laboratory Tests 11/24/16 16:00: Hematology Comments 11/27/16 06:15: White Blood Count 9.7, Red Blood Count 2.80, Hemoglobin 9.0, Hematocrit 26.7, Mean Corpuscular Volume 95.4, Mean Corpuscular Hemoglobin 32.1, Mean Corpuscular Hemoglobin Concent 33.7, Red Cell Distribution Width 12.8, Platelet Count 148 Exam Vital Signs Vital Signs BP 137/81 , HR 119 (109-150's) , 98% in RA, T max 38.3 at ~1330 (11/27/16) First fever noted was 38.2 on 11/26/16 at 2041. Antibiotics were started at 22:00 Amp/ Gent/Clindamycin I/O last 24 hours =[id number]=+296. Exam Abdomen: Fundus firm Lungs: Clear to Auscultation Heart: Regular Rate/Rhythm, Normal S1, Normal S2 General: Alert, Oriented X3 Surgical Wound : Dressing & Drainage Status: Dry & Intact OB Post Assessment/Plan Assessment 31 y 1. POD#1 S/P PCD for non reassuring heart tones remote from delivery. Postoperative endometritis. First fever noted was 38.2 on 11/26/16 at 2041. Antibiotics were started at 22: 00 Amp/Gent/Clindamycin Last fever /Tmax 38.3 n 11/27/16 at 1330 2. Preeclampsia without sever featues. 3 Rh negative, rhogam received. Plan: Creatinine is rising, Gentamicin dose will be adjusted by pharmacists based on creatinine and gentamicin level. Blood cultures drawn today during fever spike. Preeclampsia last pending. May consider to switch to different antibiotics if continued to spike fever after 48 hours of starting antibiotics. Continue close VS and I/o monitoring Olvin Collins MD Nov 27, 2016 14:46
[2016-11-27] MEDS: Ampicillin-Sulbactam Inj 1,500 MG in 0.9% Sodium Chloride 50 ML IV SCH ×2 (18:24→18:57)
[2016-11-27] MEDS ORDERED: Ampicillin-Sulbactam Inj 3,000 MG in 0.9% Sodium Chloride 50 ML IV SCH (18:30)
[2016-11-27 18:33] LABS: APPEARANCE,URINE CLEAR (CLEAR,HAZY); COLOR,URINE YELLOW (YELLOW); OCCULT BLOOD,URINE SMALL (NEGATIVE)
--- NOTE | 2016-11-27 19:04 | ABG ---
DateTimeAnalyzed 18:57:00 -_ pH ____7.495 - 7.350 7.450 pCO2 ___26.5__ -mmHg 35.0 45.0 pO2 263 -mmHg 69.0 116 HCO3- ___20.3__ -mmol/L 22.0 26.0 ABE ___-2.0__ -mmol/L -2.0 2.0 tHb ____8.6__ -g/dL O2Hb ___97.5__ -% COHb ____1.4__ -% MetHb ____1.1__ -% sO2 __100.0__ -% FIO2 ___80.0__ -% Drawn By blf - Date/Time Notified____ 19:03:00 -_ Spontaneous_RR ___24.0__ -b/min Liter_Flow ___10.0__ -L/min Oxygen Device 1 NON RE-TEODORO - Notified By blf - Notified Whom ___DR. AL ИРИНА - B 759 -mmHg tO2 ___12.5__ -Vol% Dani test _Positive -
--- NOTE | 2016-11-27 19:15 | DRSVH ---
PROCEDURE: X-RAY CHEST ONE VIEW, PORTABLE ([id number]) INDICATIONS: ELEVATED TEMP TECHNIQUE: One view of the chest was acquired. COMPARISON: None. FINDINGS: Surgical changes and devices: None. Lungs and pleura: No pleural effusions or pneumothorax. Lungs are abnormal, with a retrocardiac lef t lower lobe dense pneumonia. Mediastinum: Mediastinal contours appear normal. Heart size is normal. Bones and chest wall: No suspicious bony lesions. Overlying soft tissues appear unremarkable. IMPRESSION: Left lower lobe pneumonia behind the heart, no effusion seen. Dictated by: Josh Martell M.D. on 11/27/2016 at 19:13 Approved by: Josh Martell M.D. on 11/27/2016 at 19:14
[2016-11-27] MEDS ORDERED: DAPTOmycin Inj 500 MG in 0.9% Sodium Chloride 50 ML IV SCH (19:30)
[2016-11-27] MEDS ORDERED: Lactated Ringer's 1,000 ML IV ONE (20:10)
--- NOTE | 2016-11-27 20:41 | PCM.DC.OB ---
Obstetrical Discharge Summary Date of Service Nov 27, 2016 Date of hospital admission Nov 23, 2016 at 15:10 Date of Discharge: Nov 27, 2016 Providers Admitting Physician: Godfrey Guevara MD Primary Care Physician: Ana Luisa Andino MD Attending Physician: Godfrey Guevara MD Diagnosis at Time of Discharge 1. POD#1 status post Primary CD for none reassuring heart tones remote from delivery 2. Endometritis with sepsis 3. Preeclampsia without sever features Problems: Consultations Dr. Rosas , ID Dr. Berger, hospitalist Date of Procedure: Nov 27, 2016 Hospital Course: 31 Y 1. POD#1 status post Primary CD for none reassuring heart tones remote from delivery 2. Endometritis with sepsis 3. Preeclampsia without sever features Patient was admitted November 23, 2016 for induction of labor. Started with cervical repining with misoprostol then dinoprostone. Mcgowan balloon was inserted November 25, 2016 at 1300 ad was started on Pitocin. SROM was for 17 hours before delivery with section for none reassuring heart tones remote from delivery. Time of delivery November 26, 2016 at 1940. Patient received prophylactic antibiotic 2 g of cefazolin before skin incision. 1 hour after CD she developed a fever of 38.2 C. Antibiotics were started at 1 hour later. Gentamicin 5 mg/kg Q 24 hrs, Ampicillin 2 g Q 6 hrs, Clindamycin 900 mg Q 6 hrs. Fever continued to spike through out POD#1 38.0 C at 8:00, 38.3 C at 1330 (blood culture collected) was responsive to Tylenol. At 18:00 temperature was 39.0 (second set of blood cultures collected) and did not response to Ibuprofen associated with decrease oxygen saturation to 90%, tachycardia 120's 130's , BP 140/73. Phone consult with ID, Dr. Pena and he recommended to switch to Ampicillin to Unasyn 3g Q6 and to give one dose of Daptomycin 500 mg q 24. Blood culture collected. CBC with diff , BMP, lactate and ABG. Hospitalist were consulted for ICU admission but ICU staff dose not feel equipped to manage sepsis. Hospitalist Dr. Berger recommended transfer to facility that is capable to take of sepsis. chest X-ray with left lower lobe pneumonia. culture prelim result is Gram variable rods. IV boluses given total 2878 ml, urine out put 2150 Spoke with [facility] for transfer as patient needs close ICU monitoring until she show response to the antibiotics, [facility] accepted the transfer and OBGYN will be on consult. Will give additional 1000 ml fluid bolus and continue to monitor fluid out put. Creatinine is improving down 0.56 from 0.75 Laboratory Tests 72 Hours Test 11/25/16 09:36 11/26/16 21:05 11/27/16 06:15 11/27/16 14:40 Urine Random Creatinine 109mg/dL (16-392) Urine Random Total Protein 35mg/dL (0-15) Urine Protein/Creatinine Ratio 0.32 (0-200) Sodium Level 138mEq/L (134-144) 131mEq/L (134-144) Potassium Level 4.4mEq/L (3.5-5.2) 4.1mEq/L (3.5-5.2) Chloride Level 103mEq/L (97-108) 99mEq/L (97-108) Carbon Dioxide Level 18mmol/L (18-29) 20mmol/L (18-29) Blood Urea Nitrogen 11mg/dL (6-20) 11mg/dL (6-20) Creatinine 0.75mg/dL (0.57-1.00) 0.61mg/dL (0.57-1.00) Estimat Glomerular Filtration Rate 129mL/min (>59) 164mL/min (>59) Glucose Level 97mg/dL (60-99) 88mg/dL (60-99) Calcium Level 8.3mg/dL (8.5-10.1) 7.5mg/dL (8.5-10.1) Total Bilirubin 0.6mg/dL (0.0-1.2) Aspartate Amino Transf (AST/SGOT) 20U/L (0-50) 31U/L (0-50) Alanine Aminotransferase (ALT/SGPT) 11U/L (0-32) 12U/L (0-32) Alkaline Phosphatase 114U/L (25-150) Total Protein 5.5g/dL (6.4-8.4) Albumin 2.4g/dL (3.4-5.0) White Blood Count 9.7th/mm3 (3.8-10.1) Red Blood Count 2.80mil/mm3 (3.90-5.20) Hemoglobin 9.0g/dL (12.0-15.6) Hematocrit 26.7% (35.0-46.0) Mean Corpuscular Volume 95.4fL (81-100) Mean Corpuscular Hemoglobin 32.1pg (27.0-35.0) Mean Corpuscular Hemoglobin Concent 33.7% (32.0-37.0) Red Cell Distribution Width 12.8% (12.3-15.4) Platelet Count 148bil/L (150-400) Uric Acid 4.5mg/dL (2.6-7.2) Random Gentamicin Level 0.6ug/mL Rx Test 11/27/16 18:00 11/27/16 18:53 11/27/16 20:15 Urine Color Yellow (YELLOW) Urine Appearance Clear (CLEAR,HAZY) Urine pH 7.0 (5.0-8.0) Urine Specific [place] 1.010 (1.003-1.035) Urine Protein Tracemg/dL (NEG,TRACE) Urine Glucose (UA) Negativemg/dL (NEGATIVE) Urine Ketones Negativemg/dL (NEGATIVE) Urine Occult Blood Small (NEGATIVE) Urine Nitrite Negative (NEGATIVE) Urine Bilirubin Negative (NEGATIVE) Urine Urobilinogen 8.0mg/dL (NORMAL) Urine Leukocyte Esterase Trace (NEGATIVE) Urine RBC 0-2/hpf (0-2) Urine WBC 6-10/hpf (0-5) Urine Epithelial Cells Moderate/hpf (NONE-MOD) Urine Crystals None seen (NONE SEEN) Urine Bacteria Few/hpf (NONE-FEW) Urine Hyaline Casts None/lpf (NONE) Urine Granular Casts None seen (NONE SEEN) Urine Waxy Casts None seen (NONE SEEN) Urine Red Blood Cell Casts None seen (NONE SEEN) Urine White Blood Cell Casts None seen (NONE SEEN) Urine Mucus None seen (None Seen) Urine Trichomonas None seen (NONE SEEN) Urine Yeast None (NONE SEEN) Urinalysis Comment None Urine Culture Reflexed Indicated Lactic Acid Level 0.8mmol/L (0.4-2.0) White Blood Count 6.4th/mm3 (3.8-10.1) Red Blood Count 2.61mil/mm3 (3.90-5.20) Hemoglobin 8.5g/dL (12.0-15.6) Hematocrit 25.0% (35.0-46.0) Mean Corpuscular Volume 95.8fL (81-100) Mean Corpuscular Hemoglobin 32.6pg (27.0-35.0) Mean Corpuscular Hemoglobin Concent 34.0% (32.0-37.0) Red Cell Distribution Width 12.9% (12.3-15.4) Platelet Count 103bil/L (150-400) Neutrophils (%) (Auto) 87.0% (40-74) Lymphocytes (%) (Auto) 7.0% (14-46) Monocytes (%) (Auto) 4.7% (4-12) Eosinophils (%) (Auto) 0.5% (0-5) Basophils (%) (Auto) 0% (0-3) Sodium Level 131mEq/L (134-144) Potassium Level 3.6mEq/L (3.5-5.2) Chloride Level 100mEq/L (97-108) Carbon Dioxide Level 19mmol/L (18-29) Blood Urea Nitrogen 12mg/dL (6-20) Creatinine 0.56mg/dL (0.57-1.00) Estimat Glomerular Filtration Rate 181mL/min (>59) Glucose Level 73mg/dL (60-99) Calcium Level 7.9mg/dL (8.5-10.1) Procalcitonin 3.84ng/mL (0.00-0.08) Cholecalciferol (Vitamin D3) (Vitamin D3) 2,000 Unit Tablet 2,000 UNIT PO ( Reported) Ferrous Sulfate (Ferrous Sulfate) 324 Mg Tablet.dr 324 MG PO DAILY (Reported) Hydrocortisone (Hydrocortisone) 1 % Cream..g. 28.4 GM RC BID (Reported) Loratadine (Loratadine) 5 Mg/5 Ml (5 Ml) Solution 10 MG PO PRN allergies ( Reported) Vit W-Ca,Fe,FA(<1 mg) ( Formula) 1 Each Tablet 1 EACH PO DAILY (Reported) Discontinued Medications Amoxicillin (Amoxicillin) 500 Mg Tablet 500 MG PO TID Prescribed by: ZANE DOBSON MD Docusate Sodium (Colace) 100 Mg Capsule 100 MG PO DAILY PRN PRN For Constipation Prescribed by: IFTIKHAR HUGHES Hydrocodone-Acetaminophen 5-325 mg (Hydrocodone-Acetaminophen 5-325 mg) 1 Each Tablet 1 TABLET PO Q4H PRN PRN For Pain Prescribed by: IFTIKHAR HUGHES Sulfamethoxazole/Trimeth 800-160 mg (Bactrim DS 800-160 mg) 1 Each Tablet 1 TABLET PO BID Prescribed by: IFTIKHAR HUGHES Disposition Disposition: [facility] Discharge Condition: Guarded. Olvin Collins MD Nov 27, 2016 20:41
[2016-11-27 20:43] LABS: BASOPHILS % (AUTO) 0 % (0-3); EOSINOPHILS % (AUTO) 0.5 % (0-5); MONOCYTES % (AUTO) 4.7 % (4-12); Mean Corpuscular Hemoglobin 32.6 pg (27.0-35.0); Mean Corpuscular Volume 95.8 fL (81-100); Platelet Count 103 bil/L (150-400)
[2016-11-27] MEDS: DEXTROSE 5% IV SCH (22:24)
[2016-11-27] MEDS: GENTAMICIN IV SCH (22:24)
[2016-11-27] MEDS ORDERED: Ondansetron 2 mg/mL 2 mL Inj ONE (23:52)
[2016-11-27] MEDS ORDERED: Morphine PF 1 mg/mL 10 mL Inj ONE (23:52)
[2016-11-28] MEDS ORDERED: Ampicillin-Sulbactam Inj 3,000 MG in 0.9% Sodium Chloride 100 ML IV SCH (02:30)
[2016-11-28] MEDS ORDERED: Gentamicin Serum Trough XX ONE (16:30)
--- NOTE | 2016-12-01 14:49 | PATH ---
SURGICAL PATHOLOGY Attending Physician:Cyndee West, CASE STATUS: Signed Out PATIENT NAME: CARLEY FOSTER PID: [id number] : 1985 DATE COLLECTED:11/26/2016 00:00 SPECIMEN: Placenta CLINICAL HISTORY: PIH 1. PLACENTA FINAL DIAGNOSIS: Placenta with Umbilical Cord and Membranes: 1. Placenta: 496 grams (gestational age not provided). Multiple small infarcts involving approximately 5% of the placental disc. Negative for inflammation and significant vascular lesions. 2. Umbilical cord: 17.2 cm in length with three normal blood vessels. Acute arteritis and phlebitis. Cord attached 7.5 cm from the placental edge. 3. membranes: Diffuse acute chorionitis. Membranes ruptured at the free placental edge. ICD10: O41.0 GROSS DESCRIPTION: The specimen is received in formalin, labeled with the patient's name and consists of an intact placenta and includes placental disc (496 g, 18.5 x 12.5 x 2.8 cm), umbilical cord (length-17.2 cm, diameter-1.4 x 1.4 cm) and membranes. The membranes are ruptured at the free edge of the placenta and are thick and rubbery. The umbilical cord is attached 7.5 cm from the edge of the placenta and contains 3 vessels. The surface is smooth and shiny with no evidence of meconium identified. The maternal surface is dark maroon with normal cotyledon formation. The placental disc is spongy and contains multiple servin-yellow rubbery fibrous areas (0.7 x 0.5 x 0.5 cm-1.2 x 0.9 x 0.8 cm) involving approximately 5% of the placenta. No hematomas, masses, or lesions are identified. Section code: (A) edge of placenta with membranes; (B) umbilical cord; (C-D, E-F, G, H) placenta, 4 full thickness sections. 11/29/16 ICD-9 CODES: CPT CODES: 1: 52228 Electronically Signed Out By Jacobo Marin MD [facility] Pathology Jacobo Marin MD [facility] [address] [place] [id number] Technical component performed at [facility], [address], [address]
== END 2016-11-27 23:53 | disposition short-term general hospital (02) | DRG 765 ==
LOC: FBC 15:10 → UNDODISIN 11-27 23:48
PROVIDERS: ADMIT Family Medicine; ATTEND Family Medicine
PROC: 3E033VJ Introduction of Other Hormone into Peripheral Vein, Percutaneous Approach (ICD-10-PCS; 2016-11-24)
PROC: 10H07YZ Insertion of Other Device into Products of Conception, Via Natural or Artificial Opening (ICD-10-PCS; 2016-11-25)
PROC: 10D00Z1 Extraction of Products of Conception, Low, Open Approach (ICD-10-PCS; principal; 2016-11-26)
PROC: 4A033R1 Measurement of Arterial Saturation, Peripheral, Percutaneous Approach (ICD-10-PCS; 2016-11-27)
DX: O14.04 Mild to moderate pre-eclampsia, complicating childbirth (principal); J18.9 Pneumonia, unspecified organism; O85 Puerperal sepsis; O36.0930 Maternal care for other rhesus isoimmunization, third trimester, not applicable or unspecified; O76 Abnormality in fetal heart rate and rhythm complicating labor and delivery; B96.20 Unspecified Escherichia coli [E. coli] as the cause of diseases classified elsewhere; Z3A.37 37 weeks gestation of pregnancy; Z37.0 Single live birth

== ENCOUNTER 2016-12-04 16:56 | Emergency (ER) | payer OTHER ==
[~2016-12-04] VITALS: Ht 157.5 cm; Wt 72.7 kg
[2016-12-04] VITALS (8 sets, daily range): BP systolic 124–157; BP diastolic 62–95; PULSE 72–100; RESP 16–35; O2SAT 95–99
[~2016-12-04 16:56] MED LIST changes: -AMOX500T2 PO; +CHOL200025 PO; -DOCU-41 PO; +FERR324T2 PO; -HYDR-4003 PO; +HYDR28.484 RC; +LORA5SOL82 PO; +PREN-12 PO; -SULF1TAB35 PO
--- NOTE | 2016-12-04 17:01 | ED.REPORT ---
HPI-General Illness Date of Service Dec 04, 2016 ED Provider: The patient is a 31 year old female with history of Pre-eclampsia, who presents to the emergency department complaining of chest pressure and high blood pressure. At 0600 this morning she suddenly felt like she couldn't breath. Her breathing has improved but she still complains of chest pressure. She was recently hospitalized after being septic with an E. Coli infection during delivery. She went to on November 26 and was discharged 2 days ago. She complains of mild LLQ abdominal pain, this is improved compared to prior to her recent hospitalization. She has been taking blood medications as prescribed. Nursing Notes Stated Complaint: ELEVATED BP/CHEST PAIN Nursing Notes Reviewed: Yes Allergies: Coded Allergies: No Known Allergies (Unverified , 12/04/16) Scheduled Ferrous Sulfate (Ferrous Sulfate) 324 Mg Tablet.dr 324 MG PO DAILY Hydrocortisone (Hydrocortisone) 1 % Cream..g. 28.4 GM RC BID Vit W-Ca,Fe,FA(<1 mg) ( Formula) 1 Each Tablet 1 EACH PO DAILY Scheduled PRN Loratadine (Loratadine) 5 Mg/5 Ml (5 Ml) Solution 10 MG PO PRN allergies Miscellaneous Medications Cholecalciferol (Vitamin D3) (Vitamin D3) 2,000 Unit Tablet 2,000 UNIT PO General Time Seen by MD: 17:01 Chief Complaint Chest pain, Other (elevated blood pressure) Hx Obtained From: Patient, Spouse Arrived By: Walk-in Sudden in Onset?: No Onset Occurred: 3 days ago Symptom Duration: Since onset Location: : Chest Quality: Pressure Severity: Current: Moderate Severity: Maximum: Severe Recent Healthcare: Recent doctor visit, Recent hospitalization Similar Sx Previous: Yes Past Medical History Past Medical History History of Chlamydia Hx of pre-eclampsia Past Surgical History Reports: Cholecystectomy Family History Noncontributory Smoking History Unknown if Ever Smoker Social History Other Social History: Good social support, Local resident Ambulatory Status Independent Review of Systems +elevated blood pressure Full Review of Systems Cardiovascular: Reports: Chest pain GI: Reports: Abdominal pain Complete sys rev & neg: except as marked. Physical Exam Vital Signs Vital Signs Date Time Temp Pulse Resp B/P Pulse Ox O2 Delivery O2 Flow Rate FiO2 12/04/16 18:10 90 17 140/81 98 Room Air 12/04/16 17:43 97 19 139/87 95 Room Air 12/04/16 17:02 36.7 100 35 148/95 97 Room Air Initial VS: Reviewed, Vital signs abnormal Head / Eyes: Atraumatic, Normocephalic, PERRL ENT: Mucous membranes moist, Conjunctiva normal, No scleral icterus Neck: Supple, Non-tender, Full range of motion Lymphatic: No lymphadenopathy Extremities: Vascular intact, Neuro intact, No tenderness Skin: Warm, Dry, No cyanosis Neurologic: Alert, Oriented, Nonfocal Psychiatric: Mood/affect normal, Behavior normal, Normal thought content General/Constitutional: Awake, Alert, Cooperative Respiratory / Chest: Breath sounds = bilat, No respiratory distress Hypoxic, tachypneic Cardiovascular: Heart rate NL, Regular rhythm, Heart sounds NL, No gallop, No murmurs, No rubs Lower Ext Edema: Positive: Bilateral 2+ Abdomen: Soft, No guarding, No rebound, BS normoactive, No distention, No hernia, No palpable mass, No pulsatile mass Her suture line was mildly tender and erythematous but did not look grossly infected. Interpretation & Diagnostics Lab Results Interpretation Result Diagram: 12/04/16 1715 12/04/16 1715 Test 12/04/16 17:15 White Blood Count 12.0th/mm3 (3.8-10.1) Red Blood Count 2.41mil/mm3 (3.90-5.20) Hemoglobin 7.6g/dL (12.0-15.6) Hematocrit 23.7% (35.0-46.0) Mean Corpuscular Volume 98.3fL (81-100) Mean Corpuscular Hemoglobin 31.5pg (27.0-35.0) Mean Corpuscular Hemoglobin Concent 32.1% (32.0-37.0) Red Cell Distribution Width 13.1% (12.3-15.4) Platelet Count 407bil/L (150-400) Neutrophils (%) (Auto) 73% (40-74) Lymphocytes (%) (Auto) 18% (14-46) Monocytes (%) (Auto) 5% (4-12) Eosinophils (%) (Auto) 3% (0-5) Basophils (%) (Auto) 0% (0-3) Band Neutrophils % 1% (1-5) Metamyelocytes % % (0-0) Sodium Level 138mEq/L (134-144) Potassium Level 4.1mEq/L (3.5-5.2) Chloride Level 104mEq/L (97-108) Carbon Dioxide Level 16mmol/L (18-29) Blood Urea Nitrogen 13mg/dL (6-20) Creatinine 0.71mg/dL (0.57-1.00) Estimat Glomerular Filtration Rate 138mL/min (>59) Glucose Level 122mg/dL (60-99) Uric Acid 5.5mg/dL (2.6-7.2) Calcium Level 8.8mg/dL (8.5-10.1) Magnesium Level 2.0mg/dL (1.6-2.6) Total Bilirubin 0.3mg/dL (0.0-1.2) Aspartate Amino Transf (AST/SGOT) 22U/L (0-50) Alanine Aminotransferase (ALT/SGPT) 30U/L (0-32) Alkaline Phosphatase 301U/L (25-150) Lactate Dehydrogenase 253U/L (100-190) Troponin T < 0.010ug/L (0.0-0.011) Total Protein 6.9g/dL (6.4-8.4) Albumin 3.0g/dL (3.4-5.0) Hold Patel Top Tube Received (Received) ECG Interpretation ECG Interpretation: Sinus rhythm with a rate of 93 Time: 17:28 Interpreted by: ED physician Re-Eval/Medical Decision Source of Hx: Old records Counseled Regarding: Diagnosis, Lab results Discharge & Departure Shift Change Sign-Out Patient Care Transferred: Yes Discussed Complaint(s): Yes Laboratory Evaluation: Done, results pending Imaging Studies: Done, await radiologist Response to Therapy: Discussed Primary Impression: Chest pressure Additional Impression: Hypertension Hypertension type: unspecified secondary hypertension Qualified Code: I15.9 - Secondary hypertension, unspecified Discharge Condition All VS Reviewed: Yes Condition: Stable Referrals: Ana Luisa Andino MD (PCP) Care Transferred to: Dr. Dasilva Care Transferred at: 18:01 Scribe Attestation Portions of this note were transcribed by Aria Gómez. I, Dr. Schmitt personally performed the history, physical exam and medical decision-making; I reviewed and confirmed the accuracy of the information in the transcribed note. Signed by: Huong Sheth, 12/04/2016 at 1800. copies to: Ana Luisa Andino MD, Timothy S DO Dec 04, 2016 17:01 Rico,Aria Johnson Dec 04, 2016 17:04
[2016-12-04] MEDS ORDERED: Labetalol 5 mg/mL 4 mL Inj IVPUSH ONE (17:15)
[2016-12-04] MEDS ORDERED: Labetalol 5 mg/mL 20 mL Inj IV ONE (17:25)
[2016-12-04 17:41] LABS: Mean Corpuscular Hemoglobin 31.5 pg (27.0-35.0)
[2016-12-04 17:46] LABS: Mean Corpuscular Volume 98.3 fL (81-100); Platelet Count 407 bil/L (150-400)
--- NOTE | 2016-12-04 17:50 | DRSVH ---
PROCEDURE: X-RAY CHEST ONE VIEW, PORTABLE ([id number]) INDICATIONS: chest pain TECHNIQUE: One view of the chest was acquired. COMPARISON: [facility], CR, XR CHEST 1VW (PORTABLE), 11/27/2016, 18:20. FINDINGS: Surgical changes and devices: None. Lungs and pleura: No pleural effusions or pneumothorax. There are a few indistinct left cardiac opa cities which appear decreased from the prior study. Right lung is clear. Mediastinum: Mediastinal contours appear normal. Heart size is normal. Bones and chest wall: No suspicious bony lesions. Overlying soft tissues appear unremarkable. IMPRESSION: 1. Persistent but decreased left retrocardiac opacities consistent with consolidation or atelectasis . Dictated by: Andrew Hardin M.D. on 12/04/2016 at 17:47 Approved by: Andrew Hardin M.D. on 12/04/2016 at 17:48
[2016-12-04 18:01] LABS: BASOPHILS % (AUTO) 0 % (0-3); EOSINOPHILS % (AUTO) 3 % (0-5); MONOCYTES % (AUTO) 5 % (4-12); NEUTROPHILS % (AUTO) 73 % (40-74)
[2016-12-04 18:10] LABS: TROPONIN T < 0.010 ug/L (0.0-0.011)
[2016-12-04] MEDS ORDERED: Piperacillin-Tazo 3.375 Gm Inj 3.375 GM in Dextrose 5% Minibag Plus 50 ML IV ONE (19:05)
--- NOTE | 2016-12-04 19:16 | DRSVH ---
PROCEDURE: CT ABDOMEN AND PELVIS WITH CONTRAST ([id number]) INDICATIONS: 31 year-old was born female with left lower quadrant pain status post section. TECHNIQUE: After the administration of oral and intravenous contrast, 5 mm thick sections acquired from the diap hragms to the symphysis. 5 mm thick coronal and sagittal reformats were performed. For radiation do se reduction, the following was used: automated exposure control, adjustment of mA and/or kV accordi ng to patient size. COMPARISON: [facility], CT, CT ANGIO CHEST PE, 12/04/2016, 18:31. FINDINGS: Image quality: Excellent. ABDOMEN: Lung bases: There is a small right pleural effusion. There are patchy bibasilar areas of consolidat ion in the lower lobes with groundglass opacities. Heart size is normal. Solid organs: Liver and spleen are normal in size and enhancement. Gallbladder is surgically absent . Biliary system is non-dilated. Pancreas enhances normally. No adrenal nodules. Kidneys are norm al in size and enhancement, without hydronephrosis. Peritoneum and bowel: Stomach and small bowel loops are normal in caliber and wall thickness. The a ppendix is dilated, measuring up to 11 mm with mild wall thickening and minimal adjacent fat strandin g. No associated free fluid. There is mild wall thickening of descending colon which could be due t o nondistention or mild colitis. No free intraperitoneal fluid or air. Nodes and vessels: No retroperitoneal or mesenteric adenopathy. Aorta and inferior vena cava are no rmal in caliber. Miscellaneous: No ventral hernias. There are postsurgical changes within the ventral abdominal wall with subcutaneous fat stranding and fluid. PELVIS: Genitourinary: There is an enlarged heterogeneous uterus consistent with state. There is a small amount of nonspecific endometrial fluid. Bladder wall thickness is normal. Miscellaneous: No inguinal hernias or adenopathy. Bones: No suspicious bony lesions. No vertebral body compression fractures. IMPRESSION: 1. Dilatation of the appendix with mild wall thickening and slight fat stranding. The findings are suggestive of acute appendicitis in the appropriate clinical context. Recommend correlation clinical ly. Findings discussed with Dr. Dasilva on 12/04/16 at 7 PM. 2. appearance of the uterus with nonspecific endometrial fluid. If there is clinical derek picion for retained products of conception, recommend further evaluation with pelvic ultrasound. 3. Bibasilar confluent airspace opacities in the lower lobes likely representing pneumonia and suspi cious for aspiration. 4. Mild segmental wall thickening of ascending colon which may reflect nondistention or a mild colit is. Dictated by: Andrew Hardin M.D. on 12/04/2016 at 18:51 Approved by: Andrew Hardin M.D. on 12/04/2016 at 19:15
--- NOTE | 2016-12-04 19:19 | DRSVH ---
PROCEDURE: CT ANGIO CHEST PULMONARY EMBOLISM ([id number]) INDICATIONS: chest pain, recent hosp, surg, post TECHNIQUE: After the administration of intravenous contrast, 2 mm thick sections acquired from the pulmonary api whit to the posterior costophrenic angles. 3-dimensional maximum intensity projection (MIP) coronal a nd sagittal reformats were then acquired through the thorax. For radiation dose reduction, the follo wing was used: automated exposure control, adjustment of mA and/or kV according to patient size. COMPARISON: [facility], CT, CT ABD PELVIS W CON, 12/04/2016, 18:31. FINDINGS: Image quality: Excellent. Pulmonary arteries: Pulmonary arteries are normal in size, and demonstrate no intraluminal filling d efects to suggest central pulmonary embolism. Lungs and pleura: There is a small right pleural effusion. There are patchy areas of consolidation in the lower lobes confluent airspace opacities. There are also a few patchy airspace opacities with in the right upper lobe. Central and peripheral airways are patent. Mediastinum: Heart size is normal, without pericardial effusion. No mediastinal or hilar adenopathy . Thoracic aorta is normal in caliber and enhancement. Esophagus is normal in caliber, without hiat al hernia. Bones and chest wall: No suspicious bony lesions. Ribs and thoracic spine appear intact throughout. Thyroid gland demonstrates no suspicious nodules. No axillary or supraclavicular adenopathy. Abdomen: Visualized upper abdominal solid organs appear normal in the early arterial phase of enhanc ement. IMPRESSION: 1. No evidence of pulmonary embolism. 2. Bibasilar confluent low lobe consolidation and groundglass opacities likely representing pneumoni a with a small right pleural effusion. The distribution also is suspicious for aspiration. Findings discussed with Dr. Dasilva 12/04/16 at 7 PM. Dictated by: Andrew Hardin M.D. on 12/04/2016 at 19:15 Approved by: Andrew Hardin M.D. on 12/04/2016 at 19:17
[2016-12-04] MEDS ORDERED: levoFLOXacin Inj 750 MG in IV Premix 1 EACH IV ONE (19:50)
[2016-12-04 20:00] LABS: APPEARANCE,URINE HAZY (CLEAR,HAZY); COLOR,URINE YELLOW (YELLOW); OCCULT BLOOD,URINE LARGE (NEGATIVE); PH,URINE 6.5 (5.0-8.0); UROBILINOGEN,URINE NORMAL (NORMAL)
[2016-12-04] MEDS ORDERED: ACET-171 PO (20:51)
[2016-12-04] MEDS ORDERED: POLY500P23 MC (20:51)
[2016-12-04] MEDS ORDERED: SENN-133 PO (20:51)
[2016-12-04] MEDS ORDERED: LABE200T PO (20:51)
[2016-12-04] MEDS ORDERED: SULF1TAB35 PO (20:51)
[2016-12-04] MEDS ORDERED: IBUP200C PO (20:51)
[2016-12-04] MEDS ORDERED: DOCU-41 PO (20:51)
[2016-12-04] MEDS ORDERED: OXYC-474 PO (21:20)
[2016-12-04] MEDS ORDERED: PREN-107 PO (21:21)
--- NOTE | 2016-12-04 22:52 | ER ---
[address] [address] EMERGENCY DEPARTMENT REPORT PATIENT: CARLEY FOSTER : 1985 MR#: [id number] ADMIT: 12/04/2016 JOB ID: [id number] DATE OF SERVICE: 12/04/2016 CHIEF COMPLAINT/IDENTIFICATION: Dr. Dasilva in the emergency department has consulted me on this 31-year-old female with question of appendicitis. HISTORY OF PRESENT ILLNESS: The patient has a somewhat complicated story in that she recently delivered a baby girl by section on the of this month, just eight days ago. Her course had been characterized by recurrent UTIs. Her course had been characterized by urinary tract infections with E. coli and preeclampsia without severe features. She was noted to have postoperative endometritis and on November 27, 2016, was transferred down to [facility] with a diagnosis of endometritis with sepsis. Per the patient and her partner, the patient was in the hospital until the end of this week receiving antibiotics and was discharged with oral antibiotics. However, today, she noted progressive left lower quadrant pain and presented to our emergency department where CT scan was obtained and raised the question of appendicitis. PAST MEDICAL HISTORY: Unremarkable, except as above. MEDICATIONS: P.r.n. loratadine, vitamin D3, ferrous sulfate, vitamins. ALLERGIES: None. SOCIAL HISTORY: Noncontributory. FAMILY HISTORY: Noncontributory. REVIEW OF SYSTEMS: Noncontributory. PHYSICAL EXAMINATION: Temperature is recorded between 36.7 and 38. Pulse is between 72 and 100. Blood pressure is recorded at 137 to 157 systolic and 62 to 84 diastolic. She is awake and alert. She is not jaundiced. Heart and lungs are not examined. She has a healing section incision without erythema. She has no right lower quadrant tenderness, but is quite tender to palpation and percussion in the left lower quadrant. Rectal and vaginal exam is not performed. White count is 12.0, hematocrit is 23.7, her platelet count is elevated at 407. She has a left shift with 73% neutrophils and 1% band neutrophils. Chemistries are remarkable for a carbon dioxide of 16 and an anion gap of 18, though her lactic acid is 1.2. IMAGING: She has had a chest x-ray, CT angiogram and abdominal CT. Chest x-ray demonstrates a retrocardiac opacity consistent with pneumonia. Chest CT shows no evidence of a pulmonary embolism, but bibasilar opacities suggesting bilateral pneumonia. Her abdominal CT demonstrates an 11 mm appendix with mild wall thickening and minimal adjacent fat stranding per the radiology reading. appearance of the uterus with nonspecific endometrial fluid. The pneumonia is as above and what is read as mild segmental wall thickening of the ascending colon which may reflect distention or mild colitis. I have seen all these films and read all the reports. Regarding her appendix, I think it is borderline abnormal, though there is no appendicolith and fat stranding is minimal. IMPRESSION AND RECOMMENDATIONS: This is a 31-year-old female who has minimal CT findings suggestive of appendicitis, but a clinical picture that would suggest that if she does have an early appendicitis it is the least acute of two other problems, including what appears to be bibasilar pneumonia and clinically appears to have unresolved endometritis given that her left lower quadrant pain is her primary complaint and her left lower quadrant tenderness is the primary finding on physical examination. I do not think that the degree of appendicitis that is demonstrated on the CT would at all be consistent with her left shift and her left lower quadrant tenderness. I have discussed this with this with Dr. Dasilva, offered to follow along if the patient is admitted to either the medicine or the SWITCHER service. However, he tells me that the patient is going to be sent back to the [facility]. I did discuss with him the fact that the patient's partner/ expressed dissatisfaction with the care that they received at the [facility].
== END 2016-12-04 21:33 | disposition short-term general hospital (02) ==
LOC: SED 16:56
DX: R07.89 Other chest pain (principal); R10.32 Left lower quadrant pain; I15.9 Secondary hypertension, unspecified; R06.82 Tachypnea, not elsewhere classified; R50.9 Fever, unspecified
CPT/HCPCS: 36415; 71010; 71275; 74177; 80053; 81000; 83605; 83615; 83735; 84145; 84484; 84550; 85025; 87040; 87086; 87088; 93005; 96365; 96366; 96367; 96375; 99285; J1956; J2543; Q9967